=== PATIENT | female | born 1935 | race Caucasian/White ===

== ENCOUNTER → 2019-09-04 16:49 | Outpatient (CLI) | payer MEDICARE, SELFPAY ==
--- NOTE | ~2019-09-04 | XR_ITS ---
EXAMINATION: XR knee LT 2V EXAM DATE: 09/04/2019 17:08 INDICATION: Posterior left knee pain, no known recent injury. Unable to stand. TECHNIQUE: Three projections of the left knee. There is no prior study for comparison. FINDINGS: No evidence osteochondral defect or joint body in the left knee joint. Moderate sized trinh prapatellar enthesopathy. There is moderate medial and probably patellofemoral compartment primary os teoarthritis, mild at the lateral tibiofemoral compartment. No joint effusion. There are no acute fra ctures or dislocations identified. There is no subcutaneous gas. The soft tissue is unremarkable. There are no radiopaque foreign bodies. 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 Reviewed, dictated and finalized at location A. IMPRESSION: Moderate patellofemoral and medial tibiofemoral compartment osteoar thritis.
== END ==
PROVIDERS: PCP Family Medicine; Visit Provider Family Medicine
DX: M25.562 Pain in left knee (principal); M17.12 Unilateral primary osteoarthritis, left knee
CPT/HCPCS: 73560

== ENCOUNTER 2019-09-04 17:25 | Outpatient (CLI) | payer MEDICARE, SELFPAY ==
[2019-09-04 17:42] LABS: Hematocrit 34.4 % (37.0-47.0); Hemoglobin 10.2 g/dL (12.0-15.0); Mean Corpuscular HGB Conc 29.7 g/dl (32-36); Mean Corpuscular Hemoglobin 27.7 pg (26-34); Mean Corpuscular Volume 93.5 fl (80-100); Mean Platelet Volume 10.2 fl (7.4-10.4); Platelet Count Result 292 k/mm3 (150-375); Red Blood Count 3.68 M/mm3 (4.2-5.4); Red Cell Distribution Width 16.6 % (11.5-14.5); White Blood Count 12.3 K/mm3 (4.5-10.0)
[2019-09-04 17:53] LABS: Albumin Level 3.2 g/dL (3.5-5.1); Alkaline Phosphatase 224 U/L (38-126); Aspartate Amino Transferase 35 U/L (14-36); Bilirubin,Total 1.4 mg/dL (0.2-1.3); Blood Urea Nitrogen 46 mg/dL (7-17); Calcium 8.9 mg/dL (8.4-10.2); Carbon Dioxide 18 mmol/L (22-30); Chloride 103 mmol/L (98-107); Estimated Glomerular Filt Rate 18; Glucose 110 mg/dL (65-105); Potassium 4.8 mmol/L (3.4-5.0); Sodium 137 mmol/L (137-145)
[2019-09-04 17:57] LABS: Alanine Aminotransferase 25 U/L (4-35)
== END 2019-09-04 17:26 | disposition home or self-care (01) ==
PROVIDERS: PCP Family Medicine; Visit Provider Family Medicine
DX: R52 Pain, unspecified (principal); R53.83 Other fatigue
CPT/HCPCS: 36415; 80053; 85027

== ENCOUNTER 2019-09-10 08:47 | Outpatient (CLI) | payer MEDICARE, SELFPAY ==
[2019-09-10 10:27] LABS: Basophils Absolute Auto 0.1 K/mm3 (0.0-0.1); Basophils Percent Auto 0.4 % (0.2-1.2); Eosinophils Absolute Auto 0.6 K/mm3 (0-0.3); Eosinophils Percent Auto 5.2 % (0-4.4); Hematocrit 32.3 % (37.0-47.0); Hemoglobin 9.8 g/dL (12.0-15.0); Immature Granulocyte Absolute 0.05 K/mm3 (0.00-0.031); Immature Granulocyte Percent A 0.4 % (0-0.5); Lymphocytes Absolute Auto 1.91 K/mm3 (0.9-3.2); Lymphocytes Percent Auto 16.4 % (18.3-44.2); Mean Corpuscular HGB Conc 30.3 g/dl (32-36); Mean Corpuscular Hemoglobin 27.8 pg (26-34); Mean Corpuscular Volume 91.8 fl (80-100); Mean Platelet Volume 10.3 fl (7.4-10.4); Monocytes Absolute Auto 0.9 K/mm3 (0.1-0.6); Monocytes Percent Auto 7.4 % (2.6-8.5); Neutrophils Absolute Auto 8.2 K/mm3 (1.3-6.7); Neutrophils Percent Auto 70.2 % (45.5-73.1); Platelet Count Result 290 k/mm3 (150-375); Red Blood Count 3.52 M/mm3 (4.2-5.4); Red Cell Distribution Width 16.7 % (11.5-14.5); White Blood Count 11.6 K/mm3 (4.5-10.0)
[2019-09-10 10:41] LABS: Alanine Aminotransferase 17 U/L (4-35); Albumin Level 2.9 g/dL (3.5-5.1); Alkaline Phosphatase 310 U/L (38-126); Aspartate Amino Transferase 30 U/L (14-36); Blood Urea Nitrogen 56 mg/dL (7-17); Calcium 8.9 mg/dL (8.4-10.2); Carbon Dioxide 21 mmol/L (22-30); Chloride 103 mmol/L (98-107); Estimated Glomerular Filt Rate 19; Glucose 102 mg/dL (65-105); Potassium 4.5 mmol/L (3.4-5.0); Sodium 135 mmol/L (137-145)
== END 2019-09-10 08:48 | disposition home or self-care (01) ==
PROVIDERS: PCP Family Medicine; Visit Provider Family Medicine
DX: D72.829 Elevated white blood cell count, unspecified (principal); N18.3 Chronic kidney disease, stage 3 (moderate); R74.8 Abnormal levels of other serum enzymes; R79.89 Other specified abnormal findings of blood chemistry
CPT/HCPCS: 36415; 80053; 85025

== ENCOUNTER 2019-09-17 09:35 | Outpatient (CLI) | payer MEDICARE, SELFPAY ==
--- NOTE | ~2019-09-17 | US_ITS ---
US renal BI 09/17/2019 10:24 Procedure: Realtime transabdominal ultrasound of the kidneys and bladder. Indication: Chronic renal disease stage III Comparison: CT dated 01/07/2019 Findings: There is bilateral renal cortical thinning. The right kidney measures 6.7 cm and left kidne y measures 8.7 cm. Bladder is empty limiting evaluation for bladder abnormality. Impression: 1: Atrophic kidneys with cortical thinning, consistent with chronic medical renal disease. Reviewed, dictated and finalized at location A. Impression: 1: Atrophic kidneys with cortical thinning, consistent with chronic medical hair al disease.
== END 2019-09-17 09:36 | disposition home or self-care (01) ==
PROVIDERS: PCP Family Medicine; Visit Provider Family Medicine
DX: N18.3 Chronic kidney disease, stage 3 (moderate) (principal); N26.1 Atrophy of kidney (terminal)
CPT/HCPCS: 76775

== ENCOUNTER 2019-09-27 10:41 | Inpatient (IN) | payer MEDICARE, SELFPAY ==
[2019-09-27] VITALS (23 sets, daily range): BP systolic 65–112; BP diastolic 40–93; PULSE 62–74; RESP 14–27; TEMP 36.2–36.6; O2SAT 93–100; BMI 38.2
--- NOTE | 2019-09-27 | ECHO_ITS ---
Patient Info Name: Helga Richards Age: 84 years : 1935 Gender: Female Ht: 60 in Wt: 200 lbs BSA: 2.01 m2 HR: 83 bpm BP: 77 / 41 mmHg Technical Quality: Fair Exam Date: 09/27/2019 2:21 PM Exam Location: [facility] Patient Status: Emergency Admit Date: 09/27/2019 Staff Ordering Physician: Shannon Marquis MD Merchandise Distributor: Jasbir Degroot, SIRISHA, RT Attending Provider: Shannon Marquis MD Referring Physician: Benitez GOMEZ; Exam Type: CA echo dop color flow w con Study Info Indications I26.99 - Other pulmonary embolism without acute cor pulmonale Complete two-dimensional, color flow and Doppler transthoracic echocardiogram is performed with contrast to opacify the left ventrical and to improve the deliniation of the left ventrical endocarial boarders. Summary 1. Left ventricular chamber dimension is normal. 2. Definity contrast administered improved wall motion interpretation. 3. Left ventricular systolic function is normal, estimated at 60-65%. 4. The left ventricular diastolic function is grade I diastolic dysfunction. 5. E/e' 9 is minimally elevated. 6. The aortic valve is not well visualized. 7. There is mild aortic valve stenosis based on a peak velocity of 154.83 cm/s, mean gradient of 4 mmHg, and aortic valve area of 1.44 cm2. 8. There is small right sided pericardial effusion. Left Ventricle E/e' 9 is minimally elevated. Definity contrast administered improved wall motion interpretation. Left ventricular chamber dimension is normal. Left ventricular systolic function is normal, estimated at 60-65%. The left ventricular diastolic function is grade I diastolic dysfunction. Right Ventricle Right ventricular chamber dimension is normal. Right ventricular systolic function is normal. Left Atria Left atrial chamber dimension is normal. Right Atria Right atrial chamber dimension is not well visualized. Aortic Valve There is mild aortic valve stenosis based on a peak velocity of 154.83 cm/s, mean gradient of 4 mmHg, and aortic valve area of 1.44 cm2. Cannot determine number of aortic valve leaflets. The aortic valve is not well visualized. There is no aortic valve regurgitation. Pulmonic Valve The pulmonic valve is not well visualized. Mitral Valve There is no mitral valve stenosis. There is no mitral valve regurgitation. Tricuspid Valve The tricuspid valve leaflets are not well visualized. There is no tricuspid valve regurgitation. Pericardium/Pleural There is small right sided pericardial effusion. Inferior Vena Cava Normal inferior vena cava with >50% collapse upon inspiration consistent with normal right atrial pressure, 5 mmHg. Aorta The aortic root size at the sinus of Valsalva is normal. Left Ventricular Outflow Tract Name Value Normal LVOT 2D LVOT Diameter 1.86 cm LVOT Doppler LVOT Peak Velocity 75.36 cm/s LVOT Peak Gradient 2 mmHg LVOT Mean Gradient 1 mmHg LVOT VTI 13.19 cm LVOT VTI/AV VTI Ratio 0.53
--- NOTE | ~2019-09-27 | XR_ITS ---
XR chest 1V portable DATE: 09/29/2019 06:14 INDICATION: Hypoxia. Dyspnea. TECHNIQUE: Portable AP chest on 09/29/2019 at 0514 hours COMPARISON: 09/28/2019 portable AP chest FINDINGS: Increased retrocardiac density on the left consistent with left lower lobe atelectasis and/ or consolidation. Small left pleural effusion is suggested. No right pleural effusion. Heart size is appears within normal range. There is aortic calcification. Diffuse osteopenia. Degenerative spurring and dextroscoliosis of the thoracolumbar spine. Surgical clips overlie the right axillary area, consistent with axillary node dissection. IMPRESSION: Left lower lobe atelectasis and/or consolidation, stable or mildly improved since 09/27 Reviewed, dictated and finalized at location A.
--- NOTE | ~2019-09-27 | CT_ITS ---
EXAMINATION: CT abdomen pelvis wo con DATE: 09/28/2019 08:48 INDICATION: Sepsis, renal failure, upper abdominal pain, urinary frequency and dysuria. TECHNIQUE: Computed tomography (CT) of the abdomen and pelvis was performed without intravenous contr ast. Automated exposure control and iterative reconstruction technique were employed. The dose-length product was 1105.26 mGy-cm. COMPARISON: CT dated 01/07/2019 FINDINGS: There are a few new noncalcified pulmonary nodules in the bilateral lower lungs on the largest appear ing 8 mm in the right lower lobe and 7 mm in the left lower lobe concerning for metastatic disease. S mall left and trace right pleural effusions. There is suggestion of nodular soft tissue density depos its at the posterior sulcus of the left pleural space in addition to macroscopic fat attenuation lobu lar extension of subpleural fat, the former also concerning for metastatic disease. Heart size is nor mal. Atherosclerotic coronary artery calcification. There is some fat attenuation along the ventricul ar septum and along the papillary muscles and moderate or band in the right ventricle consistent with chronic infarct. No pericardial or pleural effusion. Scattered hepatic and splenic calcifications consistent with old granulomatous disease. 1.5 cm fluid attenuation hepatic cyst. There are scattered more subtle hypodense hepatic nodules measuring up to 1 .5 cm scattered throughout the liver also suspicious for metastatic disease. Branching hypodense stru cture in the lateral segment of the left hepatic lobe suspicious for dilated bile ducts without evide nt obstructing stone. There are a couple calcified gallstones at the neck of the gallbladder which is distended to 4.5 cm. There appears to be either mild edematous gallbladder wall thickening versus tr theresa amount of pericholecystic fluid at the fossa between the gallbladder and liver which raises some concern for acute cholecystitis.. Pancreas and bilateral adrenal glands are normal. Mild bilateral re nal cortical atrophy. Multiple small pelvic cysts at the left kidney. No urolithiasis or hydronephros is. Postoperative change of prior partial colectomy with residual Bass's pouch in the pelvis. There is a left lower quadrant and colostomy and parastomal hernia containing multiple loops of nonobstructed bowel. There is mesenteric edema along with numerous soft tissue density nodules scattered throughou t the abdomen and pelvis including within the parastomal hernia likely representing a combination of metastatic lymphadenopathy as well as peritoneal implants. There is additional likely metastatic retr operitoneal lymphadenopathy. There is a [place] catheter in the bladder with asymmetric nodular wall th ickening along the left anterior side of the bladder wall which could be related to primary urothelia l carcinoma or more likely a conglomeration of peritoneal implants along the periphery of the bladder wall. Severe lumbar spondylosis. Chronic bilateral sacroiliitis. No new suspicious lytic or blastic bone lesions. There is a conglomeration of lymph nodes tracking along the left common femoral vein with effacement of the intervening fat plane. Prominent asymmetric edema at the left lower limb likely sequela of the previously noted extensive deep venous thrombosis throughout the left lower limb. Findings however r aise concern for invasion of left common femoral vein. IMPRESSION: 1. Extensive metastatic disease which appears to involve the lungs, left pleural space with small lef t pleural effusion, liver, peritoneum and numerous lymph nodes throughout the abdomen, pelvis and lef t inguinal region. 2. Localized biliary ductal dilation in the lateral segment of the left hepatic lobe which may be seq uela of obstruction related to metastatic disease. 3. Findings consistent with previously noted extensive deep venous thrombosis throughout the le
--- NOTE | ~2019-09-27 | US_ITS ---
US right upper quadrant DATE: 09/27/2019 15:56 INDICATION: Generalized abdominal pain. Gallstones. TECHNIQUE: Real-time imaging of liver, pancreas, gallbladder areas COMPARISON: 01/07/2019 CT abdomen pelvis FINDINGS: At least 2 filling defects are noted at the gallbladder neck, with associated acoustical sh adowing, the larger measuring approximately 8.7 mm dimension. There is mild gallbladder wall thickeni ng, measuring up to 3.5 mm thickness. No pericholecystic fluid collection is evident.. No suspicious hepatic or pancreatic mass lesion is evident. There is normal hepatopedal portal venous flow direction. The common bile duct measures 5.6 mm, within normal limits. IMPRESSION: Cholelithiasis, mild gallbladder wall thickening. Differential diagnosis includes chronic cholecystitis as well as acute cholecystitis. Reviewed, dictated and finalized at [facility]. Reviewed, dictated and finalized at location [facility]. IMPRESSION: Cholelithiasis, mild gallbladder wall thickening. Differential diag nosis includes chronic cholecystitis as well as acute cholecystitis.
--- NOTE | ~2019-09-27 | US_ITS ---
US venous doppler [facility] DATE: 09/27/2019 11:17 INDICATION: Left lower extremity swelling TECHNIQUE: Real-time and color flow imaging and Doppler analysis of the veins of the left lower extre mity COMPARISON: None FINDINGS: There is thrombus and absence of compression of the left common femoral, femoral, popliteal and posterior tibial and peroneal veins as well as greater saphenous vein. No spontaneous or phasic flow or augmentation. IMPRESSION: Deep venous thrombosis throughout the left lower extremity Dr. Roldan telephoned the report on 09/27/2019 at 1122 hours to emergency room physician Dr. Marquis Reviewed, dictated and finalized at [facility]. Reviewed, dictated and finalized at [facility]. IMPRESSION: Deep venous thrombosis throughout the left lower extremity Dr. Roldan telephoned the report on 09/27/2019 at 1122 hours to emergency room phys ye Marquis
--- NOTE | ~2019-09-27 | NM_ITS ---
NM pulmonary perfusion DATE: 09/27/2019 13:36 INDICATION: Dyspnea. Deep venous thrombosis of lower extremity TECHNIQUE: 8 perfusion images after intravenous administration of 4.5 mCi [id number] MAA COMPARISON: 09/27/2019 2 view chest 09/27/2019 venous duplex examination of left lower extremity FINDINGS: The examination is limited due to patient movement and inability to move arms above head. There are multiple unmatched subsegmental perfusion defects, consistent with high probability of pulm onary embolism. IMPRESSION: High probability of pulmonary embolism Reviewed, dictated and finalized at [facility]. Reviewed, dictated and finalized at [facility].
--- NOTE | ~2019-09-27 | XR_ITS ---
EXAMINATION: XR chest 1V portable DATE: 09/28/2019 05:51 INDICATION: Hypoxia. TECHNIQUE: A single frontal view of the chest was obtained. COMPARISON: Chest 2 views 09/27/2019, CT abdomen and pelvis 01/07/2019 FINDINGS: A calcified right lung nodule and calcified right hilar lymph nodes are consistent with old granulomatous disease. There are airspace opacities in the perihilar regions and lower lung zones, l eft worse than right. There is a small left pleural effusion. No pneumothorax. The heart size is norm al. IMPRESSION: 1. Worsened airspace opacities in the perihilar regions and lower lung zones, consistent with pulmona ry edema versus pneumonia. 2. Small left pleural effusion. Reviewed, dictated and finalized at location [facility]. IMPRESSION: 1. Worsened airspace opacities in the perihilar regions and lower lung zones, c onsistent with pulmonary edema versus pneumonia. 2. Small left pleural effusion.
--- NOTE | ~2019-09-27 | XR_ITS ---
EXAMINATION: XR chest 1V portable DATE: 10/02/2019 06:35 INDICATION: Hypoxia. TECHNIQUE: A single frontal view of the chest was obtained. COMPARISON: Chest single view 09/30/2019, chest CT 09/28/2019 FINDINGS: A calcified right lung nodule and calcified right hilar lymph nodes are consistent with old granulomatous disease. There is a small left pleural effusion. There is a subcentimeter nodule in ri ght lower lobe. There are airspace opacities in left perihilar region and at left lung base. No pneum othorax. The heart size is normal. There are surgical clips in right axilla. IMPRESSION: 1. Worsened small left pleural effusion. 2. Worsened airspace opacities in left perihilar region and at left lung base, consistent with atelec tasis or less likely pneumonia. 3. Right lung lower lobe nodule, consistent with metastatic disease. Reviewed, dictated and finalized at location [facility]. IMPRESSION: 1. Worsened small left pleural effusion. 2. Worsened airspace opacities in left perihilar region and at left lung base, consistent with atelectasis or less likely pneumonia. 3. Right lung lower lobe nodule, consistent with metastatic disease.
--- NOTE | ~2019-09-27 | XR_ITS ---
XR chest 1V portable DATE: 09/30/2019 06:03 INDICATION: Hypoxia TECHNIQUE: Portable AP chest on 09/30/2019 at 0509 hours COMPARISON: 09/29/2019 portable AP chest at 0514 hours FINDINGS: There is persistent left lower lobe infiltrate and/or atelectasis. Minimal left pleural eff usion is suggested. Old pulmonary granulomatous disease including calcified granuloma in the right lung base. Aortic atherosclerosis. Surgical clips, right axillary area. Diffuse osteopenia. Dextro scoliosis and degenerative spurring of the thoracolumbar spine. IMPRESSION: No significant change of left lower lobe infiltrate and/atelectasis since 09/29/2019 Reviewed, dictated and finalized at location [facility].
--- NOTE | ~2019-09-27 | XR_ITS ---
XR chest 2V DATE: 09/27/2019 13:21 INDICATION: Dyspnea. The venous thrombosis of the left lower extremity TECHNIQUE: AP and lateral views COMPARISON: 04/09/2014 PA and lateral chest FINDINGS: There is old pulmonary granulomatous disease. Normal heart size. Aortic arch calcification. No pulmonary infiltrate or consolidation, pleural effusion or pulmonary vascular congestion or pneum othorax is evident. Surgical clips overlie right axillary area, likely due to axillary node dissection. Degenerative changes of the thoracic and lumbar spine. IMPRESSION: No active disease Reviewed, dictated and finalized at location [facility]. IMPRESSION: No active disease
--- NOTE | 2019-09-27 10:32 | ED.LOWEXIN ---
HPI - Extremity Injury (Lower) General Chief Complaint: Extremity Injury, Lower Stated Complaint: . Time Seen by Provider: 09/27/19 10:33 Source: patient, family and other (PCP) Mode of arrival: EMS Limitations: no limitations History of Present Illness HPI Narrative: Pt is an 84 y/o female who presents to the ED, via EMS, from home with c/o LLE pain from her lt hip down her whole lt leg. She states that this morning she noticed her lt leg was more swollen. She states that she had an XR of her LLE and had blood drawn at the hospital a couple of weeks ago. Spouse notes that the pt vomited brown emesis this morning and about a week ago vomited green then black emesis. She was Dx with gall-stones but they did not recommend surgery at that time and suggested she change her diet. Pt has not been ambulatory for a couple of months. She is supposed to see a Dope Sprayer on 10/10. Per spouse pt has urinary incontinence for a couple of months. Pt reports liquid stool coming out of her colostomy bag. She also reports an intermittent cough and SOB. Pt denies ABD pain, fever, or CP. Per spouse, pt has been weak and has not been eating much. Spouse states that yesterday she only ate oatmeal and tomato soup. Pt states that she only had one cup of water yesterday and none today. Pt's PCP, Dr. Henson called the ED to let us know that the pt was coming. She states that the pt has a H/O DVT and normally uses a wheelchair. She also noted that the pt's lt leg is more swollen than normal. complaint: other (lt leg pain) Relieving factors: nothing Context: other (h/o DVT) Associated symptoms: swelling Other symptoms: SOB and other (cough, decreased intake, weak) Related Data Home Medications Medication Instructions Recorded Confirmed aspirin 81 mg tablet,delayed 81 mg PO DAILY 05/30/19 release calcium carbonate 600 mg calcium 600 mg PO BID 05/30/19 (1,500 mg) tablet olmesartan 20 mg tablet 20 mg PO DAILY 05/30/19 silver nitrate applicators 75 %-25 1 applic TOPICAL 2XW 05/30/19 % topical stick exemestane 25 mg tablet 25 mg PO DAILY 09/04/19 09/04/19 escitalopram oxalate 10 mg tablet 20 mg PO DAILY tablet 09/27/19 Allergies Allergy/AdvReac Type Severity Reaction Status Date / Time adhesive Allergy Unknown RASH Verified 09/27/19 10:30 clindamycin Allergy Unknown Skin Verified 09/27/19 10:30 Reaction Penicillins Allergy Unknown Skin Verified 09/27/19 10:30 Reaction Quinolones Allergy Unknown Quinolones Verified 09/27/19 10:30 ([id number]) Review of Systems Review of Systems: All systems reviewed & are unremarkable except as noted in HPI and below Constitutional: Constitutional: Denies fever(s), Reports poor appetite and Reports weakness Cardiovascular: Cardiovascular: Denies chest pain Respiratory: Respiratory: Reports cough (intermittent) and Reports dyspnea (intermittent) Gastrointestinal: Gastrointestinal: Denies abdominal pain, Reports loose stools (liquid stool in colostomy bag) and Reports vomiting Genitourinary: Genitourinary: Reports urinary incontinence Musculoskeletal: Musculoskeletal: Reports other (LLE pain, LLE swelling) [facility], [facility] Past Medical History Medical History Chronic kidney disease, stage III (moderate) Colostomy in place Depression with anxiety DVT (deep venous thrombosis) Gallstones (2019) General deterioration of health History of breast cancer History of rectal cancer (~1999) Hypertensive chronic kidney disease with stage 1 through stage 4 chronic kidney disease, or unspecified chronic kidney disease Lumbar spondylosis Metabolic syndrome Mixed hyperlipidemia Popliteal cyst Prediabetes Varicose veins of both lower extremities Surgical History Surgical History History of breast biopsy (~1981) History of cataract extraction (~1981) History of colonoscopy (~09/16/10) History of colonoscopy (
--- NOTE | 2019-09-27 10:40 | PC.NURSE ---
Pt and further discuss that she has had intermentint abd pain and was told she has gall stones, denies pain currently. Pt has colostomy and it is stillmaking stool. Pt reports pt is not able to walk well now. Pt has had n/v yesterday.
[2019-09-27] MEDS: SODIUM CHLORIDE 0.9% IV 1,000 ML 999 ML IV CONT ×5 (10:54→18:29)
[2019-09-27] MEDS: ONDANSETRON INJ 4 MG/2 ML VIAL IV PUSH (11:20)
[2019-09-27 11:30] LABS: Basophils Absolute Auto 0.1 K/mm3 (0.0-0.1); Basophils Percent Auto 0.3 % (0.2-1.2); Eosinophils Absolute Auto 0.3 K/mm3 (0-0.3); Eosinophils Percent Auto 1.8 % (0-4.4); Hematocrit 33.7 % (37.0-47.0); Hemoglobin 9.9 g/dL (12.0-15.0); Immature Granulocyte Absolute 0.08 K/mm3 (0.00-0.031); Immature Granulocyte Percent A 0.5 % (0-0.5); Lymphocytes Absolute Auto 1.67 K/mm3 (0.9-3.2); Lymphocytes Percent Auto 10.8 % (18.3-44.2); Mean Corpuscular HGB Conc 29.4 g/dl (32-36); Mean Corpuscular Volume 95.2 fl (80-100); Mean Platelet Volume 10.4 fl (7.4-10.4); Monocytes Absolute Auto 0.8 K/mm3 (0.1-0.6); Monocytes Percent Auto 4.8 % (2.6-8.5); Neutrophils Absolute Auto 12.7 K/mm3 (1.3-6.7); Neutrophils Percent Auto 81.8 % (45.5-73.1); Platelet Count Result 229 k/mm3 (150-375); Red Blood Count 3.54 M/mm3 (4.2-5.4); Red Cell Distribution Width 17.3 % (11.5-14.5); White Blood Count 15.5 K/mm3 (4.5-10.0)
--- NOTE | 2019-09-27 11:31 | ECG_ITS ---
Measurements Intervals Hooper Rate: 55 P: RI: 0 QRS: -3 QRSD: 84 T: 6 QT: 413 QTc: 398 Interpretive Statements SINUS OR ECTOPIC ATRIAL RHYTHM WITH SINUS ARRHYTHMIA LOW QRS VOLTAGE IN LIMB LEADS BORDERLINE T WAVE ABNORMALITY- INFERIOR LEADS BASELINE ARTIFACT- I, II, AVR, AVF, V1, V3-V4 BORDERLINE ECG Electronically Signed On 09-27-2019 12:17:59 CDT by Andriy Shaw D.O.
[2019-09-27 11:40] LABS: Anisocytosis 1+ (NORMAL); Hypochromasia 1+ (NORMAL); INR 1.4; Platelet Estimate Adequate (Adequate)
[2019-09-27 11:41] LABS: Partial Thromboplastin Time 29.8 SECONDS (22.3-36.8)
[2019-09-27 11:46] LABS: Alanine Aminotransferase 8 U/L (4-35); Albumin Level 2.6 g/dL (3.5-5.1); Alkaline Phosphatase 301 U/L (38-126); Aspartate Amino Transferase 25 U/L (14-36); Bilirubin,Total 0.7 mg/dL (0.2-1.3); Blood Urea Nitrogen 113 mg/dL (7-17); Calcium 9.3 mg/dL (8.4-10.2); Carbon Dioxide 21 mmol/L (22-30); Chloride 107 mmol/L (98-107); Estimated CRCL calculation 8 ml/min; Estimated Glomerular Filt Rate 9; Glucose 110 mg/dL (65-105); Lipase 95 U/L (23-300); Magnesium 2.3 mg/dL (1.6-2.3); Phosphorus 4.7 mg/dL (2.5-4.5); Potassium 6.5 mmol/L (3.4-5.0); Sodium 137 mmol/L (137-145)
[2019-09-27] MEDS: DEXTROSE 50% 25 GM/50 ML SYRINGE IV PUSH ×2 (11:53→14:05)
[2019-09-27] MEDS: INSULIN HUMAN REGULAR (*BKC) 100 UNITS/ML 10 UNITS IV PUSH (11:54)
[2019-09-27] MEDS: CALCIUM GLUCONATE 1,000 MG/10 ML VIAL 2000 MG IV PUSH (11:54)
[2019-09-27] MEDS: SODIUM BICARBONATE 8.4% 50 MEQ/50 ML VIAL IV PUSH (11:54)
[2019-09-27 12:05] LABS: NT Pro B Type Natriuretic Pept 4050 PG/ML (5-100)
[2019-09-27 12:06] LABS: Troponin I 0.022 ng/mL (0.000-0.034)
[2019-09-27 12:11] LABS: Glucose Point of Care 93 (65-105)
[2019-09-27 12:13] LABS: Alveolar/Arterial O2 Gradient 70.2 mmHg; Base Excess ABG -2.5 mEq/l (+/-2.0); Carboxyhemoglobin 0.5 % THb (0-2.0); Fractional Inspired Oxygen 28 %; HCO3 ABG 19.9 mEq/l (22.0-26.0); Oxygen Content ABG 12.1 %vol (16.0-22.0); Oxygen Saturation ABG 98.1 % (95.0-100.0); Oxyhemoglobin 96.6 % THb (90.0-100.0); PCO2 ABG 25.9 mmHg (35.0-45.0); PO2 ABG 98.9 mmHg (80.0-100.0); PO2 FiO2 Ratio Arterial Blood 3.53 %; Reduced Hemoglobin 2.9 %THb (0-5.0); Total Hemoglobin 8.8 g/dL (12.0-18.0); pH ABG 7.503 (7.350-7.450)
[2019-09-27 12:14] LABS: Device NASAL CANNULA; Modified Allen's Test Pass; Site Drawn LEFT RADIAL
[2019-09-27 12:56] LABS: Glucose Point of Care 96 (65-105)
--- NOTE | 2019-09-27 12:58 | PC.NURSE ---
Straight cath x2 with no success
[2019-09-27 14:01] LABS: Glucose Point of Care 62 (65-105)
[2019-09-27] MEDS: HEPARIN SODIUM 5,000 UNITS/ML VIAL 5000 UNITS IV PUSH (14:27)
[2019-09-27 14:28] LABS: Reflex Lactic Acid Yes or No Add Lactic
[2019-09-27] MEDS: HEPARIN SOD/D5W 100 UNITS/ML 25,000 UNITS/250 ML BAG 11 UNITS IV CONT (14:28)
--- NOTE | 2019-09-27 14:47 | PC.NURSE ---
Per personal trainer Verbal order, titrated william to 100mcg/min.
[2019-09-27 14:49] LABS: Lactic Acid 4.9 mmol/L (0.7-2.1)
[2019-09-27 14:59] LABS: Add Urine Microscopic? YES; Appearance Urine Turbid (Clear); Bacteria Urine 2+ /hpf; Bilirubin Urine Negative (Negative); Blood Urine 2+ (Negative); Color Urine Yellow (Yellow); Glucose Urine UA Negative (Negative); Ketones Urine Negative (Negative); Leukocyte Esterase Ur 2+ LEU/UL (Negative); Mucus Urine Rare /lpf; Nitrate Urine Negative (Negative); Protein Urine 3+ mg/dL (Negative); RBC Urine >75 /hpf (0-2); Specific Grav Ur 1.023 (1.001-1.035); Urobilinogen Urine Negative mg/dL (<2.0); WBC Urine >75 /hpf
--- NOTE | 2019-09-27 15:02 | WPDCNINT ---
Assessment and Plan Assessment and plan (1) Shock: Code(s): R57.9 - Shock, unspecified Status: Acute Assessment and Plan: patient is hypotensive and blood pressure has not improved after 4 L of IV fluid. Her pictures mixed as to whether patient has septic shock versus cardiogenic from pulmonary embolism or both patient has been started on Asif-Synephrine. stat echo is being done and I have spoken to Dr. Shaw regarding prelim report of echo and he told me that he does not see any evidence of RV strain dilation or failure. In light of minimal hypoxia and echo findings it does not appear that hypotension is secondary to a massive PE and is more likely secondary to sepsis. Patient was explained the risks and benefits of tPA and its utility patient understands the risk and is agreeable to administration if needed. Central line was Initially not placed by ED because of potential tPA administration and Asif-Synephrine was started via wide bore peripheral IV at this time. But will place a femoral CVC now as pt on heparin infusion and switch to levophed Monitor LA Check Cheetah once pt reaches ICU (2) Pulmonary embolism: Code(s): I26.99 - Other pulmonary embolism without acute cor pulmonale Status: Acute Assessment and Plan: patient has acute DVT and V/Q scan suggestive of PE. Patient has been started on heparin infusion. See above (3) Sepsis: Code(s): A41.9 - Sepsis, unspecified organism Status: Acute Assessment and Plan: Empiric broad spectrum antibiotics for now Empiric Rocephin and flagyl to cover for UTI and potential cholecystitis Cultures sent and pending. the UA ordered and pending check right upper quadrant ultrasound vasopressors to maintain blood pressure (4) SIMI (acute kidney injury): Code(s): N17.9 - Acute kidney failure, unspecified Status: Acute Assessment and Plan: prerenal versus ATN IV fluids monitor urine output electrolytes and creatinine will consider Nephrology consultation if do not improve or worsens further CT A/P to be done (5) CKD (chronic kidney disease): Code(s): N18.9 - Chronic kidney disease, unspecified Status: Acute (6) Hyperkalemia: Code(s): E87.5 - Hyperkalemia Status: Acute Assessment and Plan: was treated with insulin calcium dextrose and bicarb in the ED will give also dose of Kayexalate recheck (7) Colostomy status: Code(s): Z93.3 - Colostomy status Status: Chronic Assessment and Plan: colostomy care (8) DVT of leg (deep venous thrombosis): Code(s): I82.409 - Acute embolism and thrombosis of unspecified deep veins of unspecified lower extremity Status: Acute Assessment and Plan: heparin infusion at this time echo is being done and pending (9) Gallstone: Code(s): K80.20 - Calculus of gallbladder without cholecystitis without obstruction Status: Acute Assessment and Plan: RUQ US already done in ED LFTs normal Additional Plan DVT prophylaxis - patient is on heparin drip Stress ulcer prophylaxis - not indicated Nutrition - NPO Code Status - I have discussed with both patient and patient wishes to be DNR and DNI at this time. Total Critical Care Time - 60 minutes Due to a high probability of clinically significant, life threatening deterioration, the patient required my highest level of preparedness to intervene emergently and I personally spent this critical care time directly and personally managing the patient. This critical care time included obtaining a history; examining the patient; pulse oximetry; ordering and review of studies; arranging urgent treatment with development of a management plan; evaluation of patient's response to treatment; frequent reassessment; and discussions with other providers. It was exclusive of separately billable procedures and treating other patients a
[2019-09-27 15:54] LABS: Glucose Point of Care 150 (65-105)
--- NOTE | 2019-09-27 16:00 | WPDPROCEDUR ---
Procedures Central Line Placement: Right Femoral: Discussed w/ patient and/or surrogate, the non-emergent placement of a central venous catheter, including its clinical necessity/indication & associated potential risks & complications.: Yes The patient and/or surrogate understand(s) and acknowledge(s) the need to proceed with central venous catheter insertion as an important element of the patient's clinical management.: Yes Consent: Obtained from pt and her Central Line Date: 09/27/19 Central Line Time: 16:00 Pre-procedural Time-Out was completed immediately before starting the procedure and confirmed: Patient Identification, Site, Procedure, Patient Position and the Availability of Requisite Equipment.: Yes Patient Position: supine Patient placed on monitor/pulse ox: Yes Provider Prep: mask, sterile gown, sterile gloves, Max. sterile barrier precautions, cap and hand hygiene Central line prep: Chlorhexidine scrub and sterile full body sheet applied Local anesthesia used: lidocaine 1% Amount of anesthesia used (ml): 5 Ultrasound used for placement: Yes Central line lumen inserted: triple Vietnamese: 12 Length (cm): 16 Depth of Insertion (cm): 16 Post procedure: sutured in place, good blood return, all ports aspirated, flushed, capped, tegaderm, hemostatic disc and aseptic technique maintained throughout procedure Patient tolerated procedure: well Complications: none
[2019-09-27] MEDS: SODIUM CHLORIDE 0.9% IV 1,000 ML 100 ML IV CONT (16:23)
[2019-09-27] MEDS: NOREPINEPHRINE 8 MG/D5W 250 ML 8 MG/250 ML BAG 9.4 MG IV CONT (16:24)
[2019-09-27] MEDS: metroNIDAZOLE 500 MG/ISO 100ML 500 MG/100 ML BAG 100 MG IVPB ×2 (16:25→22:24)
--- NOTE | 2019-09-27 16:45 | PM.IMHP ---
H&P: HPI History of Present Illness Chief complaint: Left leg pain and swelling. Narrative: Helga Richards is an 84-year-old female with chronic kidney disease, hypertension, and history of both breast and colon cancer who presented to the emergency department earlier this morning via EMS from home for evaluation of left leg pain and swelling. She has been essentially bed-bound for the last several months, for reasons unclear to me. She rarely gets up to a wheelchair if she is going out of the home for an appointment, She does not get up to a commode but has an colostomy in place, and uses depends otherwise. In any regard, she is not the greatest historian and cannot tell me when she 1st noticed the swelling or the pain. This morning, her left leg ?really hurt from my toes to my butt which prompted her to call 911. She was found to have a DVT throughout the left lower extremity, and a subsequent V/Q scan, performed due to hypotension, demonstrated a high probability for pulmonary embolism. A stat echocardiogram done in the emergency department showed no signs of right ventricular strain. She was also found to have worsening creatinine from baseline, and upon further questioning she admits that her appetite has not been well for quite some time. She has nausea most days, and intermittently will have episodes of emesis as well. She attributes this to her gallstones, and despite being on a low-fat diet, she continues to have upper abdominal discomfort after eating. Additionally, she complains of dysuria and urinary frequency. No fever, chills, or sweats. No emesis today. She denies hematemesis. She does note that her stools have been a bit more liquid than usual, but she attributes that to decreased oral intake. She has not noticed blood or mucus in the stool. She denies chest pain, pleuritic pain, palpitations, shortness of breath, orthopnea, and PND. Review of Systems Review of Systems: Narrative: Twelve systems were reviewed with pertinent positives and negatives as per HPI. No fever, chills, or sweats. She denies sinus congestion, rhinorrhea, otalgia, and odynophagia. Interestingly she does not have chest pain, pleuritic pain, or shortness of breath. No cough. No acute changes in her intermittent abdominal pain, mainly related to food. Except as documented, all other systems were reviewed and are negative. [facility] Past Medical History Medical History (Updated 09/27/19 @ 20:43 by Kezia Scott PA-C) Chronic kidney disease, stage III (moderate) Baseline creatinine is around 1.80. Colostomy in place Depression with anxiety Gallstones (2018) History of breast cancer Status post right lumpectomy on antiestrogen. History of colon cancer -Status post partial colon resection, chemotherapy, and radiation therapy in 2001. -colonoscopy 04/23/[address] Melgar was unremarkable. Hypertension Lumbar spondylosis Mixed hyperlipidemia Popliteal cyst Prediabetes Varicose veins of both lower extremities Surgical History Surgical History (Updated 09/27/19 @ 20:39 by Kezia Scott PA-C) History of cataract extraction (~1981) History of colon resection For colon cancer in 2001. History of colonoscopy (~09/16/10) History of colonoscopy (~08/17/07) History of lumpectomy of right breast Status post ORIF of fracture of ankle (~1984) Family History Family History Father Diabetes mellitus Family history of cardiovascular disease Mother Family history of cardiovascular disease Family history of malignant neoplasm of breast Sibling Family history of cardiovascular disease Acute myocardial infarction, Onset Age: 47 Family history of malignant neoplasm of breast in first degree relative Family history of malignant neoplasm of breast Other Carcinoma of colon Family history of elevated blood lipids Hypertension Social History Social History (Updated 09/27/19
[2019-09-27] MEDS: ACETAMINOPHEN 325 MG TABLET 650 MG PO (18:15)
[2019-09-27] MEDS: SODIUM POLYSTYRENE SULFONONATE 15 GM/60 ML BTL 30 GM PO (18:21)
[2019-09-27] MEDS: VASOPRESSIN INJ 100 UNITS in DEXTROSE 5% 95 ML IV CONT (18:30)
[2019-09-27 18:55] LABS: Basophils Percent Auto 0.2 % (0.2-1.2); Eosinophils Absolute Auto 0.1 K/mm3 (0-0.3); Eosinophils Percent Auto 0.7 % (0-4.4); Hematocrit 30.7 % (37.0-47.0); Hemoglobin 9.1 g/dL (12.0-15.0); Immature Granulocyte Absolute 0.16 K/mm3 (0.00-0.031); Immature Granulocyte Percent A 0.8 % (0-0.5); Lymphocytes Absolute Auto 2.07 K/mm3 (0.9-3.2); Lymphocytes Percent Auto 10.8 % (18.3-44.2); Mean Corpuscular HGB Conc 29.6 g/dl (32-36); Mean Corpuscular Hemoglobin 27.9 pg (26-34); Mean Corpuscular Volume 94.2 fl (80-100); Mean Platelet Volume 10.5 fl (7.4-10.4); Monocytes Percent Auto 5.3 % (2.6-8.5); Neutrophils Absolute Auto 15.7 K/mm3 (1.3-6.7); Neutrophils Percent Auto 82.2 % (45.5-73.1); Nucleated Red Blood Cells Perc 0.1 % (0.0-0.2); Platelet Count Result 233 k/mm3 (150-375); Red Blood Count 3.26 M/mm3 (4.2-5.4); Red Cell Distribution Width 17.5 % (11.5-14.5); White Blood Count 19.1 K/mm3 (4.5-10.0)
[2019-09-27 19:04] LABS: Lactic Acid 3.7 mmol/L (0.7-2.1)
[2019-09-27 19:11] LABS: Blood Urea Nitrogen 95 mg/dL (7-17); Calcium 8.4 mg/dL (8.4-10.2); Carbon Dioxide 18 mmol/L (22-30); Chloride 112 mmol/L (98-107); Estimated CRCL calculation 10 ml/min; Estimated Glomerular Filt Rate 11; Glucose 136 mg/dL (65-105); Hypochromasia 1+ (NORMAL); Platelet Estimate Adequate (Adequate); Potassium 4.8 mmol/L (3.4-5.0); Sodium 137 mmol/L (137-145)
--- NOTE | 2019-09-27 19:17 | ADMGEN ---
This patient, Helga Richards, was admitted to Intensive Care Unit-8. Patient/family oriented to hospital policies and general routines including ID bracelet, bed and alarms, visiting hours, pain management, procedures, bathroom and other care routines, personal items, smoking policy, room service/diet, and visiting hours. Valuables list has been completed. Information on how to activate the Rapid Response Team has been discussed. Patient/Family are encouraged to report perceived risks to care and to ask questions if they do not understand what they are told or what they should do.
[2019-09-27 21:08] LABS: Partial Thromboplastin Time > 200.0 SECONDS (22.3-36.8)
[2019-09-28] VITALS (15 sets, daily range): BP systolic 70–129; BP diastolic 38–61; PULSE 56–85; RESP 16–22; TEMP 36.6–36.8; O2SAT 91–100; BMI 40.7
[2019-09-28] MEDS: ACETAMINOPHEN 325 MG TABLET 650 MG PO ×2 (01:58→17:30)
[2019-09-28] MEDS: NOREPINEPHRINE 8 MG/D5W 250 ML 8 MG/250 ML BAG 31.9 MG IV CONT (03:06)
[2019-09-28 06:05] LABS: Basophils Percent Auto 0.2 % (0.2-1.2); Eosinophils Absolute Auto 0.1 K/mm3 (0-0.3); Eosinophils Percent Auto 0.3 % (0-4.4); Hematocrit 31.5 % (37.0-47.0); Hemoglobin 9.2 g/dL (12.0-15.0); Immature Granulocyte Absolute 0.26 K/mm3 (0.00-0.031); Immature Granulocyte Percent A 1.2 % (0-0.5); Lymphocytes Absolute Auto 2.17 K/mm3 (0.9-3.2); Lymphocytes Percent Auto 10.2 % (18.3-44.2); Mean Corpuscular HGB Conc 29.2 g/dl (32-36); Mean Corpuscular Hemoglobin 27.5 pg (26-34); Mean Platelet Volume 10.5 fl (7.4-10.4); Monocytes Absolute Auto 1.1 K/mm3 (0.1-0.6); Monocytes Percent Auto 5.4 % (2.6-8.5); Neutrophils Absolute Auto 17.6 K/mm3 (1.3-6.7); Neutrophils Percent Auto 82.7 % (45.5-73.1); Nucleated Red Blood Cells Perc 0.1 % (0.0-0.2); Platelet Count Result 277 k/mm3 (150-375); Red Blood Count 3.35 M/mm3 (4.2-5.4); Red Cell Distribution Width 17.8 % (11.5-14.5); White Blood Count 21.3 K/mm3 (4.5-10.0)
[2019-09-28 06:09] LABS: Alanine Aminotransferase 9 U/L (4-35); Albumin Level 2.3 g/dL (3.5-5.1); Alkaline Phosphatase 242 U/L (38-126); Aspartate Amino Transferase 32 U/L (14-36); Bilirubin,Total 0.4 mg/dL (0.2-1.3); Blood Urea Nitrogen 90 mg/dL (7-17); Calcium 8.4 mg/dL (8.4-10.2); Carbon Dioxide 20 mmol/L (22-30); Chloride 111 mmol/L (98-107); Estimated CRCL calculation 10 ml/min; Estimated Glomerular Filt Rate 11; Glucose 153 mg/dL (65-105); Lactic Acid 2.3 mmol/L (0.7-2.1); Magnesium 1.9 mg/dL (1.6-2.3); Sodium 137 mmol/L (137-145)
[2019-09-28 06:19] LABS: Partial Thromboplastin Time 154.5 SECONDS (22.3-36.8)
[2019-09-28 06:44] LABS: Anisocytosis 1+ (NORMAL); Hypochromasia 1+ (NORMAL); Platelet Estimate Adequate (Adequate)
[2019-09-28] MEDS: metroNIDAZOLE 500 MG/ISO 100ML 500 MG/100 ML BAG 100 MG IVPB ×3 (06:47→17:06)
--- NOTE | 2019-09-28 08:47 | WPDINTPN ---
Progress Note: A&P Assessment and Plan (1) Shock: Code(s): R57.9 - Shock, unspecified Status: Acute Assessment and Plan: Shock, likely related to infection, PE. Patient was adequately fluid resuscitated, noninvasive and monitoring fluid responsive. Will give additional IV fluids - echocardiogram did not show right heart strain. - UA shows UTI, possible acute cholecystitis, - continue metronidazole and ceftriaxone - femoral CVC line in place. - Continue Levophed and vasopressin - lactic acid down to 2.3 from 4.9 on admission - will start stress dose steroids (2) Pulmonary embolism: Code(s): I26.99 - Other pulmonary embolism without acute cor pulmonale Status: Acute Assessment and Plan: patient has acute DVT and V/Q scan suggestive of PE. Patient has been started on heparin infusion. - echocardiogram on 09/27/2019: Normal LV dimension, normal LV systolic function with EF 60-65%. Grade 1 diastolic dysfunction. RV chamber dimension and systolic function normal (3) SIMI (acute kidney injury): Code(s): N17.9 - Acute kidney failure, unspecified Status: Acute Assessment and Plan: acute kidney injury most likely related to septic shock, hypotension, pre renal, hypovolemia, ATN - adequately IV fluid resuscitated, - [place] showed patient is fluid responsive, discussed with Nephrology, agrees with IV fluids - continue maintenance IV fluids - maintain mean arterial pressures greater than 65 mmHg for adequate renal perfusion - appreciate Nephrology valuation recommendation - continue monitor renal function, electrolytes and urine output (4) CKD (chronic kidney disease): Code(s): N18.9 - Chronic kidney disease, unspecified Status: Acute Assessment and Plan: patient's baseline creatinine is 1.8, this could be related to Hypertension. 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 Extensive metastatic disease which appears to involve the lungs, left pleural space with small left pleural effusion, liver, peritoneum and numerous lymph nodes throughout the abdomen, pelvis and left inguinal region. 2. Localized biliary ductal dilation in the lateral segment of the left hepatic lobe which may be sequela of obstruction related to metastatic disease. 3. Findings consistent with previously noted extensive deep venous thrombosis throughout the left lower limb with possible invasion of the left common femoral vein by multiple large likely metastatic left inguinal lymph nodes. 4. Cholelithiasis with dilated gallbladder suggesting mild wall thickening versus trace amount of pericholecystic fluid which could be seen with acute cholecystitis. Per prior ultrasound report sonographic Degroot sign was negative but would consider HIDA scan for further evaluation (9) DVT prophylaxis: Code(s): Z29.9 - Encounter for prophylactic measures, unspecified Status: Acute Assessment and Plan: DVT prophylaxis - patient is on heparin drip Stress ulcer prophylaxis - not indicated Nutrition - NPO Additional Plan Hospitalist spoke to the pt and updated her with the CT abdomen /pelvis results.
[2019-09-28] MEDS: ESCITALOPRAM OXALATE 10 MG TABLET 20 MG PO (08:50)
--- NOTE | 2019-09-28 09:11 | PC.NURSE ---
Called placed to [place] patient's spouse to have nonformulary medication Exemestane brought from home. [place] will bring up to hospital at sometime today.
[2019-09-28] MEDS: NOREPINEPHRINE 8 MG/D5W 250 ML 8 MG/250 ML BAG 50.6 MG IV CONT ×2 (09:21→14:34)
[2019-09-28] MEDS: SODIUM CHLORIDE 0.9% IV 1,000 ML 100 ML IV CONT ×2 (10:43→20:30)
[2019-09-28] MEDS: hetaSTARCH 6%/NACL 500 ML 250 ML IV CONT ×2 (10:43→14:16)
--- NOTE | 2019-09-28 10:58 | PHAR ---
Home med verified: Exemestane 25mg Take 1 tablet PO daily after a meal
--- NOTE | 2019-09-28 11:10 | PM.CNNEP ---
Assessment and Plan Assessment and plan (1) Acute on chronic kidney failure: Qualifiers: Acute renal failure type: unspecified Chronic kidney disease stage: unspecified stage Qualified Code(s): N17.9 - Acute kidney failure, unspecified; N18.9 - Chronic kidney disease, unspecified Code(s): N17.9 - Acute kidney failure, unspecified; N18.9 - Chronic kidney disease, unspecified Status: Acute Assessment and Plan: The patient has chronic kidney disease. Her baseline creatinine is around 1.8. Most likely this is from hypertension. Patient also has acute kidney injury. This is most likely due to dehydration, hypotension and sepsis. The patient is getting IV fluids and antibiotics as well as supportive care and hopefully will turn around soon. Dialysis is always a possibility but we will follow this along, and do what ever needs to be done in accordance with the patient's wish fullness for aggressiveness of care. Discussed at length with Dr. Duarte (2) Septic shock: Code(s): A41.9 - Sepsis, unspecified organism; R65.21 - Severe sepsis with septic shock Status: Acute Assessment and Plan: The patient has low blood pressure and lactic acidosis. Her anion gap is currently about 16. And the lactic acid is 2.3. Some of her anion gap is likely due to the renal failure. Her blood gases actually show a respiratory alkalosis and metabolic acidosis. The former is likely due to the sepsis. (3) Pulmonary embolism: Qualifiers: Acute cor pulmonale presence: without acute cor pulmonale Chronicity: acute Pulmonary embolism type: unspecified Qualified Code(s): I26.99 - Other pulmonary embolism without acute cor pulmonale Code(s): I26.99 - Other pulmonary embolism without acute cor pulmonale Status: Acute Assessment and Plan: The patient is on heparin drip. (4) UTI (urinary tract infection): Qualifiers: Hematuria presence: without hematuria Urinary tract infection type: site unspecified Qualified Code(s): N39.0 - Urinary tract infection, site not specified Code(s): N39.0 - Urinary tract infection, site not specified Status: Acute Assessment and Plan: The patient has pyuria and hematuria. Cultures are pending. She is on antibiotics. History of Present Illness Reason for Consult Consult date: 09/28/19 Chief Complaint Chief complaint: Left leg pain and swelling. History of Present Illness Narrative: Halie is a very pleasant 84-year-old lady who has multiple medical problems including chronic kidney disease, hypertension, breast and colon cancers, colostomy, depression, hyperlipidemia, pre diabetes. The patient has been gradually weaker over the last few months. She remembers walking in December but by the time March came round she was unable to walk. She would mostly stay in bed and get around with a wheelchair. She really has not looked into why she has declined so much. Over the past few days she has noticed her left leg swelling more. She always has some swelling in both legs but usually is symmetric. This swelling got so bad that she decided to call 911 who took her to the emergency room. In the ER she was found to have a DVT. Her creatinine was elevated so a CT angio was not done but a perfusion scan was done which showed high probability for a pulmonary embolism. She has been placed on heparin. In the meantime she had a CT of the abdomen without contrast which showed widely metastatic disease along with the DVT in the left lower extremity. The patient was has also been hypotensive. She received 4L of fluid in the emergency room. This morning she had a [place] test which showed fluid responsiveness and so she is getting some more IV fluids now. Her recent blood pressures have been better. Currently her systolic is 109 on the monitor. Her urine output has been low. Upon admission her creatinine was elevated at 4.8. Her b
[2019-09-28] MEDS: SODIUM CHLORIDE 5% OPHTH OINT 3.5 GM TUBE 1 APPLIC EACH EYE (12:09)
[2019-09-28] MEDS: HYDROCORTISONE SODIUM SUCCINATE 100 MG/2 ML VIAL IV PUSH ×2 (14:16→20:30)
[2019-09-28 14:55] LABS: Partial Thromboplastin Time 101.6 SECONDS (22.3-36.8)
--- NOTE | 2019-09-28 16:16 | PM.IMPN ---
Progress Note: A&P Assessment and Plan (1) Septic shock: Code(s): A41.9 - Sepsis, unspecified organism; R65.21 - Severe sepsis with septic shock Status: Acute Assessment and Plan: Initial concern for possible cardiogenic shock given PE, however echocardiogram demonstrated normal right ventricular function. Sepsis is present on admission and supported by leukocytosis, hypotension, acidosis in the setting of UTI. Cannot rule out cholecystitis. After review of her antibiotic allergies, she was started on empiric ceftriaxone and metronidazole. Right femoral central line was placed per Dr. Dove, she is currently on Levophed will be titrated to achieve a MAP of at least 60. Blood cultures have been obtained and are pending. Urine culture pending as well. 09/28/19 16:16 Patient 84 year female who redides with her with history of colon cancer with colostomy bag, and bilateral breast cancer and had been bed-bound for last couple of months presented emergency department with a complaint of left leg patient is found to have extensive DVT in the left leg and weekly scan showed high probability of PE, cardiac echo did not show extensive right ventricular strain says is the most likely acute, patient is also found to have extensive metastasis 1. Extensive metastatic disease which appears to involve the lungs, left pleural space with small left pleural effusion, liver, peritoneum and numerous lymph nodes throughout the abdomen, pelvis and left inguinal region. Patient is seen by table cut off saw operator Oncology at the [facility], will consult further recommendation, patient is also found to have hypotensive and septic shock most likely secondary to infection, patient is being hydrated, and on IV antibiotics, patient clinically stable at the present time will continue to monitor seen by locomotive mechanic and appreciate (2) UTI (urinary tract infection): Qualifiers: Hematuria presence: without hematuria Urinary tract infection type: site unspecified Qualified Code(s): N39.0 - Urinary tract infection, site not specified Code(s): N39.0 - Urinary tract infection, site not specified Status: Acute Assessment and Plan: She has been started on ceftriaxone, pending urine culture. (3) Acute on chronic kidney failure: Qualifiers: Acute renal failure type: unspecified Chronic kidney disease stage: unspecified stage Qualified Code(s): N17.9 - Acute kidney failure, unspecified; N18.9 - Chronic kidney disease, unspecified Code(s): N17.9 - Acute kidney failure, unspecified; N18.9 - Chronic kidney disease, unspecified Status: Acute Assessment and Plan: She looks profoundly dehydrated on exam; cannot rule out a component of ATN from sepsis. Continue judicious IV fluid rehydration. Barakat catheter has been placed for strict I/O. Avoid nephrotoxic agents. If no improvement with the above treatment, a further workup will need to be pursued. Patient seen by Dr. Naidu further recommendation to follow (4) Severe dehydration: Code(s): E86.0 - Dehydration Status: Acute Assessment and Plan: IV fluid rehydration as above. (5) Pulmonary embolism: Qualifiers: Acute cor pulmonale presence: without acute cor pulmonale Chronicity: acute Pulmonary embolism type: unspecified Qualified Code(s): I26.99 - Other pulmonary embolism without acute cor pulmonale Code(s): I26.99 - Other pulmonary embolism without acute cor pulmonale Status: Acute Assessment and Plan: Patient is currently on heparin drip. (6) Acute deep vein thrombosis (DVT) of left lower extremity: Qualifiers: Affected thrombotic vein of extremity: unspecified vein of extremity Qualified Code(s): I82.402 - Acute embolism and thrombosis of unspecified deep veins of left lower extremity Code(s): I82.402 - Acute embolism and thrombosis of unspecified deep veins
[2019-09-28] MEDS: HEPARIN SOD/D5W 100 UNITS/ML 25,000 UNITS/250 ML BAG 7 UNITS IV CONT (17:00)
[2019-09-28] MEDS: NOREPINEPHRINE 8 MG/D5W 250 ML 8 MG/250 ML BAG 33.8 MG IV CONT (20:39)
[2019-09-29] VITALS (15 sets, daily range): BP systolic 87–122; BP diastolic 42–65; PULSE 50–81; RESP 14–22; TEMP 36.4–36.7; O2SAT 97–100
[2019-09-29] MEDS: metroNIDAZOLE 500 MG/ISO 100ML 500 MG/100 ML BAG 100 MG IVPB ×5 (01:54→22:50)
[2019-09-29] MEDS: SODIUM CHLORIDE 0.9% IV 1,000 ML 100 ML IV CONT (05:20)
[2019-09-29] MEDS: HYDROCORTISONE SODIUM SUCCINATE 100 MG/2 ML VIAL IV PUSH ×3 (05:21→21:05)
[2019-09-29 05:49] LABS: Hematocrit 25.9 % (37.0-47.0); Hemoglobin 7.5 g/dL (12.0-15.0); Mean Corpuscular Hemoglobin 27.6 pg (26-34); Mean Corpuscular Volume 95.2 fl (80-100); Mean Platelet Volume 9.8 fl (7.4-10.4); Platelet Count Result 204 k/mm3 (150-375); Red Blood Count 2.72 M/mm3 (4.2-5.4); White Blood Count 14.6 K/mm3 (4.5-10.0)
[2019-09-29 06:11] LABS: Partial Thromboplastin Time 78.1 SECONDS (22.3-36.8)
[2019-09-29 06:15] LABS: Lactic Acid 1.4 mmol/L (0.7-2.1)
[2019-09-29] MEDS: ACETAMINOPHEN 325 MG TABLET 650 MG PO ×3 (06:26→22:48)
[2019-09-29 07:07] LABS: Alanine Aminotransferase 6 U/L (4-35); Albumin Level 1.6 g/dL (3.5-5.1); Alkaline Phosphatase 160 U/L (38-126); Aspartate Amino Transferase 19 U/L (14-36); Bilirubin,Total 0.3 mg/dL (0.2-1.3); Blood Urea Nitrogen 76 mg/dL (7-17); Carbon Dioxide 19 mmol/L (22-30); Chloride 114 mmol/L (98-107); Estimated CRCL calculation 13 ml/min; Estimated Glomerular Filt Rate 15; Glucose 144 mg/dL (65-105); Magnesium 1.6 mg/dL (1.6-2.3); Phosphorus 4.1 mg/dL (2.5-4.5); Potassium 4.6 mmol/L (3.4-5.0); Sodium 136 mmol/L (137-145)
[2019-09-29 08:30] LABS: Iron 61 ug/dL (37-170)
[2019-09-29 08:40] LABS: Percent Iron Saturation 30 % (20-50)
[2019-09-29] MEDS: NOREPINEPHRINE 8 MG/D5W 250 ML 8 MG/250 ML BAG 15 MG IV CONT (09:13)
--- NOTE | 2019-09-29 09:15 | WPDONCCN ---
Assessment and Plan Assessment and plan (1) Metastasis from colon cancer: Code(s): C79.9 - Secondary malignant neoplasm of unspecified site; C18.9 - Malignant neoplasm of colon, unspecified Status: Acute Assessment and Plan: 1. CT scan findings suggest GI malignancy whether this is her recurrent colon cancer or a new primary 2. one could check a CEA but her overall picture is grim 3. Due to her multiple co-morbidities, advanced age and severe debility, she is not a candidate for any oncological treatments. She has incurable cancer and will from complications of her cancer 4. I did discuss all these issues with patient and I do strongly recommend hospice and comfort care after discharge provided she survives the septic shock 5. Patient whole-heartedly agrees with comfort care approach. 6. She is already a DNR 7. I will speak with her by phone this AM (2) 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: Code(s): C79.9 - Secondary malignant neoplasm of unspecified site; C50.919 - Malignant neoplasm of unspecified site of unspecified female breast Status: Acute Assessment and Plan: she is currently on endocrine therapy Upon review of her office records, she had a very early stage cancer and this would not present this way. Therefore, I conclude that she is in remission of this cancer (3) Septic shock: Code(s): A41.9 - Sepsis, unspecified organism; R65.21 - Severe sepsis with septic shock Status: Acute Assessment and Plan: per threading machine feeder automatic (4) Pulmonary embolism: Qualifiers: Acute cor pulmonale presence: without acute cor pulmonale Chronicity: acute Pulmonary embolism type: unspecified Qualified Code(s): I26.99 - Other pulmonary embolism without acute cor pulmonale Code(s): I26.99 - Other pulmonary embolism without acute cor pulmonale Status: Acute Assessment and Plan: on heparin due to metastatic GI cancer (5) Acute deep vein thrombosis (DVT) of left lower extremity: Qualifiers: Affected thrombotic vein of extremity: unspecified vein of extremity Qualified Code(s): I82.402 - Acute embolism and thrombosis of unspecified deep veins of left lower extremity Code(s): I82.402 - Acute embolism and thrombosis of unspecified deep veins of left lower extremity Status: Acute Assessment and Plan: on heparin due to mets and sedentary condition HPI Data of Consult Date/Time: 09/29/19 09:15 Requesting Physician: Demond Juarez MD Primary Care Provider: Maria Alejandra Henson DO Consult Narrative Narrative: Helga Richards is a 84 year old female with past h/o early stage breast cancer and colon cancer presents to ER with progressive left leg swelling and debility. She started having pain and swelling in the left leg in April. She sought out medical intervention and was diagnosed with OA and venous insuff. She was treated for those issues. Unfortunately, her leg progressively became more painful and swollen whereby she developed difficulty in moving and walking. She became more sedentary over the past couple of months. She saw a new PCP and was undergoing extensive testing without any solutions to her problems, according to the patient. All of her problems became unbearable this week, and her brought her to ER. In Er, she was noted to be in shock due to sepsis from UTI and duplex US showed extensive DVT of the left leg. In addition, she had ARF and low albumen. V/Q scan showed PE. She was anticoagulated with heparin and started on vasopressors and antibiotics. She has stabilized at present. Also, she has been having N/V/D intermittently for the past few weeks with anorexic s/s. CT of Abd/pelvis showed multiple masses in lungs, liver and peritoneum Review of Systems Review of Systems: All systems reviewed & are unremarkable except as noted in HPI and below Constitutional: Constitutional: Reports anorexia, Reports body
[2019-09-29] MEDS: SODIUM BICARBONATE 8.4% 150 MEQ in DEXTROSE 5% 1,000 ML 1,000 ML 75 MEQ IV CONT ×2 (09:16→22:47)
[2019-09-29 09:39] LABS: Vitamin B12 > 1000.0 pg/mL (239-931)
[2019-09-29] MEDS: ESCITALOPRAM OXALATE 10 MG TABLET 20 MG PO (11:35)
[2019-09-29] MEDS: ALBUMIN HUMAN 25% 12.5 GM/50ML 50 ML IVPB ×3 (11:50→22:50)
--- NOTE | 2019-09-29 12:58 | WPDINTPN ---
Progress Note: A&P Assessment and Plan (1) Shock: Code(s): R57.9 - Shock, unspecified Status: Acute Assessment and Plan: Shock, likely related to infection, PE. Patient was adequately fluid resuscitated, noninvasive and monitoring fluid responsive. - echocardiogram did not show right heart strain. - Urine cx growing PROTEUS MIRABILIS ( pansensitive), possible acute cholecystitis, - continue metronidazole and ceftriaxone - femoral CVC line in place. - Continue Levophed , OFF vasopressin - lactic acid down to 1.4 from 4.9 on admission - contiue stress dose steroids (2) Pulmonary embolism: Code(s): I26.99 - Other pulmonary embolism without acute cor pulmonale Status: Acute Assessment and Plan: patient has acute DVT and V/Q scan suggestive of PE. Patient on heparin infusion. - echocardiogram on 09/27/2019: Normal LV dimension, normal LV systolic function with EF 60-65%. Grade 1 diastolic dysfunction. RV chamber dimension and systolic function normal (3) SIMI (acute kidney injury): Code(s): N17.9 - Acute kidney failure, unspecified Status: Acute Assessment and Plan: acute kidney injury most likely related to septic shock, hypotension, pre renal, hypovolemia, ATN - adequately IV fluid resuscitated, - Maintenence fluids changed to Bicarb infusion - maintain mean arterial pressures greater than 65 mmHg for adequate renal perfusion - appreciate Nephrology valuation recommendation - continue monitor renal function, electrolytes and urine output (4) CKD (chronic kidney disease): Code(s): N18.9 - Chronic kidney disease, unspecified Status: Acute Assessment and Plan: patient's baseline creatinine is 1.8, this could be related to Hypertension. 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 Extensive metastatic disease which appears to involve the lungs, left pleural space with small left pleural effusion, liver, peritoneum and numerous lymph nodes throughout the abdomen, pelvis and left inguinal region. 2. Localized biliary ductal dilation in the lateral segment of the left hepatic lobe which may be sequela of obstruction related to metastatic disease. 3. Findings consistent with previously noted extensive deep venous thrombosis throughout the left lower limb with possible invasion of the left common femoral vein by multiple large likely metastatic left inguinal lymph nodes. 4. Cholelithiasis with dilated gallbladder suggesting mild wall thickening versus trace amount of pericholecystic fluid which could be seen with acute cholecystitis. Per prior ultrasound report sonographic Degroot sign was negative but would consider HIDA scan for further evaluation APPRECIATE oncology evaluation, Dr. Pisano recommended patient be hospice care as he has no treatment options for her widely metastasized cancer, given her advanced age, comorbidities, severe debility. (9) DVT prophylaxis: Code(s): Z29.9 - Encounter for prophylactic measures, unspecified Status: Acute Assessment and Plan: DVT prophylaxis - patient is on heparin drip Stress ulcer prophylaxis - not indicated N
--- NOTE | 2019-09-29 14:24 | PM.PNNEP ---
Progress Note: A&P Assessment and Plan (1) Acute on chronic kidney failure: Qualifiers: Acute renal failure type: unspecified Chronic kidney disease stage: unspecified stage Qualified Code(s): N17.9 - Acute kidney failure, unspecified; N18.9 - Chronic kidney disease, unspecified Code(s): N17.9 - Acute kidney failure, unspecified; N18.9 - Chronic kidney disease, unspecified Status: Acute Assessment and Plan: The patient has chronic kidney disease. Her baseline creatinine is around 1.8. Most likely this is from hypertension. Patient also has acute kidney injury. This is most likely due to dehydration, hypotension and sepsis. Urine electrolytes are pending Creatinine is slowly improving and urine output is picking up a little bit. (2) Septic shock: Code(s): A41.9 - Sepsis, unspecified organism; R65.21 - Severe sepsis with septic shock Status: Acute Assessment and Plan: The patient has low blood pressure and lactic acidosis. Lactate is back to normal. Anion gap is low now at 3 most likely due to the very low albumin. Still hypotensive. (3) Pulmonary embolism: Qualifiers: Acute cor pulmonale presence: without acute cor pulmonale Chronicity: acute Pulmonary embolism type: unspecified Qualified Code(s): I26.99 - Other pulmonary embolism without acute cor pulmonale Code(s): I26.99 - Other pulmonary embolism without acute cor pulmonale Status: Acute Assessment and Plan: The patient is on heparin drip. (4) UTI (urinary tract infection): Qualifiers: Hematuria presence: without hematuria Urinary tract infection type: site unspecified Qualified Code(s): N39.0 - Urinary tract infection, site not specified Code(s): N39.0 - Urinary tract infection, site not specified Status: Acute Assessment and Plan: The patient has pyuria and hematuria. Cultures are pending. She is on antibiotics. She is still hypotensive and is on norepinephrine. Subjective Date/time seen: 09/29/19 14:24 Interval history: Patient feels okay. She is sad because she found out about her cancer. Dr. Pisano has seen. He suggest hospice and Dr. Pearson is consulting Dr. Juarez. Review of Systems Cardiovascular: Cardiovascular: Reports no additional cardiovascular complaints Respiratory: Respiratory: Reports no additional respiratory complaints Gastrointestinal: Gastrointestinal: Reports no additional gastrointestinal complaints Genitourinary: Genitourinary: Reports no additional female genitourinary complaints Exam Narrative: Exam Narrative: Well developed well-nourished in no acute distress Lungs clear Heart regular without rub Abdomen bowel sounds positive soft nontender Extremities no edema Skin no rash Objective Data Vital Signs Vital Signs: Vital Signs - 24 hr 09/28/19 16:00 09/28/19 18:00 09/28/19 20:00 Temperature 36.6 C 36.8 C Pulse Rate 57 L 56 L 61 Respiratory Rate 17 19 18 Blood Pressure 114/54 L 110/52 L 100/55 L Pulse Oximetry 93 91 93 09/28/19 22:00 09/29/19 00:00 09/29/19 01:06 Temperature 36.5 C Pulse Rate 57 L 56 L 56 L Respiratory Rate 16 14 Blood Pressure 108/53 L 122/56 L Pulse Oximetry 94 100 09/29/19 01:07 09/29/19 04:00 09/29/19 05:58 Temperature 36.4 C Pulse Rate 57 L 51 L 50 L Respiratory Rate 18 17 Blood Pressure 116/58 L 95/56 L Pulse Oximetry 100 100 09/29/19 05:59 09/29/19 08:00 09/29/19 10:00 Temperature 36.4 C L Pulse Rate 50 L 57 L 64 Respiratory Rate 14 16 16 Blood Pressure 87/42 L 87/45 L 95/65 L Pulse Oximetry 98 97 99 09/29/19 12:00 09/29/19 14:00 Temperature 36.4 C L Pulse Rate 54 L 64 Respiratory Rate 19 17 Blood Pressure 103/45 L 110/57 L Pulse Oximetry 100 Intake/Output Intake/Output: Intake & Output 09/26/19 09/27/19 09/28/19 09/29/19 23:59 23:59 23:59 23:59 Intake Total 4200 3726 1853 Output Total 200 1150 5
--- NOTE | 2019-09-29 14:41 | PM.IMPN ---
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: Code(s): C79.9 - Secondary malignant neoplasm of unspecified site; C18.9 - Malignant neoplasm of colon, unspecified Status: Acute Assessment and Plan: Hospice consultation (2) Septic shock: Code(s): A41.9 - Sepsis, unspecified organism; R65.21 - Severe sepsis with septic shock Status: Acute Assessment and Plan: Continue antibiotics and wean off pressors (3) Pulmonary embolism: Qualifiers: Acute cor pulmonale presence: without acute cor pulmonale Chronicity: acute Pulmonary embolism type: unspecified Qualified Code(s): I26.99 - Other pulmonary embolism without acute cor pulmonale Code(s): I26.99 - Other pulmonary embolism without acute cor pulmonale Status: Acute Assessment and Plan: Continue IV heparin Will require oral anticoagulation upon discharge (4) UTI (urinary tract infection): Qualifiers: Hematuria presence: without hematuria Urinary tract infection type: site unspecified Qualified Code(s): N39.0 - Urinary tract infection, site not specified Code(s): N39.0 - Urinary tract infection, site not specified Status: Acute Assessment and Plan: Continue IV ceftriaxone until discharge (5) Acute on chronic kidney failure: Qualifiers: Acute renal failure type: unspecified Chronic kidney disease stage: unspecified stage Qualified Code(s): N17.9 - Acute kidney failure, unspecified; N18.9 - Chronic kidney disease, unspecified Code(s): N17.9 - Acute kidney failure, unspecified; N18.9 - Chronic kidney disease, unspecified Status: Acute Assessment and Plan: Improving with treatment of sepsis and with hydration Subjective Date/time seen: 09/29/19 14:41 Interval history: Patient was seen at the request of Dr. Pearson. Chart review. She has metastatic colon cancer. First diagnosed and treated in 2001. She denies advanced disease with metastases to the peritoneum, liver, and lungs. She is currently being treated for Proteus UTI with associated septic shock as well as DVT of lower extremity with pulmonary embolus. emergency management consultant has recommended comfort care only because of her advanced disease and multiple comorbidities. The patient his amenable to going home with hospice care once her medical condition has adequately stabilized. Currently she is experiencing no uncontrolled pain, dyspnea, restlessness, or anxiety. Exam Narrative: Exam Narrative: Alert and oriented to person place and time. Affect and mood appropriate. Objective Data Vital Signs Vital Signs: Vital Signs - 24 hr 09/28/19 16:00 09/28/19 18:00 09/28/19 20:00 Temperature 97.8 F 98.2 F Pulse Rate 57 L 56 L 61 Respiratory Rate 17 19 18 Blood Pressure 114/54 L 110/52 L 100/55 L Pulse Oximetry 93 91 93 09/28/19 22:00 09/29/19 00:00 09/29/19 01:06 Temperature 97.7 F Pulse Rate 57 L 56 L 56 L Respiratory Rate 16 14 Blood Pressure 108/53 L 122/56 L Pulse Oximetry 94 100 09/29/19 01:07 09/29/19 04:00 09/29/19 05:58 Temperature 97.6 F Pulse Rate 57 L 51 L 50 L Respiratory Rate 18 17 Blood Pressure 116/58 L 95/56 L Pulse Oximetry 100 100 09/29/19 05:59 09/29/19 08:00 09/29/19 10:00 Temperature 97.5 F L Pulse Rate 50 L 57 L 64 Respiratory Rate 14 16 16 Blood Pressure 87/42 L 87/45 L 95/65 L Pulse Oximetry 98 97 99 09/29/19 12:00 09/29/19 14:00 Temperature 97.5 F L Pulse Rate 54 L 64 Respiratory Rate 19 17 Blood Pressure 103/45 L 110/57 L Pulse Oximetry 100 Intake/Output Intake/Output: Intake & Output 09/26/19 09/27/19 09/28/19 09/29/19 23:59 23:59 23:59 23:59 Intake Total 4200 3726 1853 Output Total 200 1150 550 Balance 4000 2576 1303 Meds/Results Medications: Active Medications Generic Name Dose Route Start Last Admin Trade Name Freq PRN Reason Stop Dose Admin Acetaminophen 650
--- NOTE | 2019-09-29 16:38 | PCCCNOTE ---
Spoke with Syibl from [facility]. Everything set up and only need to be informed when discharging.
--- NOTE | 2019-09-29 16:41 | PM.IMPN ---
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: Code(s): C79.9 - Secondary malignant neoplasm of unspecified site; C18.9 - Malignant neoplasm of colon, unspecified Status: Acute Assessment and Plan: 09/29/19 16:41 Patient 84 year female who redides with her with history of colon cancer with colostomy bag, and bilateral breast cancer and had been bed-bound for last couple of months presented emergency department with a complaint of left leg patient is found to have extensive DVT in the left leg and weekly scan showed high probability of PE, cardiac echo did not show extensive right ventricular strain says is the most likely acute, patient is also found to have extensive metastasis 1. Extensive metastatic disease which appears to involve the lungs, left pleural space with small left pleural effusion, liver, peritoneum and numerous lymph nodes throughout the abdomen, pelvis and left inguinal region. Patient is seen by manager asset management Oncology at the [facility], will consult further recommendation, patient is also found to have hypotensive and septic shock most likely secondary to infection, patient is being hydrated, and on IV antibiotics, patient clinically stable at the present time will continue to monitor seen by household cook and Patient was seen by her oncologist after review her scan came to conclusion the prognosis is grim and there is no treatment available for her metastasis cancer suspect most likely colon cancer, her oncologist recommending hospice or comfort care, patient is agreeable for hospice will continue to treat for her septic shock is seen by household cook and being treated (2) UTI (urinary tract infection): Qualifiers: (2) 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: Code(s): C79.9 - Secondary malignant neoplasm of unspecified site; C50.919 - Malignant neoplasm of unspecified site of unspecified female breast Status: Acute Assessment and Plan: Patient was seen by oncologist and suspect most likely patient has metastasis colon cancer (3) Septic shock: Code(s): A41.9 - Sepsis, unspecified organism; R65.21 - Severe sepsis with septic shock Status: Acute Assessment and Plan: Most likely multifactorial possibly secondary to UTI growing Proteus mirabilis, patient being treated with Rocephin and Flagyl, Patient is being treated with levophed off pressor will continue to monitor (4) Pulmonary embolism: Qualifiers: Acute cor pulmonale presence: without acute cor pulmonale Chronicity: acute Pulmonary embolism type: unspecified Qualified Code(s): I26.99 - Other pulmonary embolism without acute cor pulmonale Code(s): I26.99 - Other pulmonary embolism without acute cor pulmonale Status: Acute Assessment and Plan: Most likely thrombotic states with metastatic malignancy possible source colon cancer resulting in pulmonary emboli patient is anticoagulated (5) UTI (urinary tract infection): Qualifiers: Hematuria presence: without hematuria Urinary tract infection type: site unspecified Qualified Code(s): N39.0 - Urinary tract infection, site not specified Code(s): N39.0 - Urinary tract infection, site not specified Status: Acute Assessment and Plan: Growing Proteus mirabilis sensitive to Rocephin will continue (6) Acute on chronic kidney failure: Qualifiers: Acute renal failure type: unspecified Chronic kidney disease stage: unspecified stage Qualified Code(s): N17.9 - Acute kidney failure, unspecified; N18.9 - Chronic kidney disease, unspecified Code(s): N17.9 - Acute kidney failure, unspecified; N18.9 - Chronic kidney disease, unspecified Status: Acute Assessment and Plan: Most likely acute on chronic patient is being gently hydrated seen by facility attendant further recommendation to follow Time Spent With Patient Time with patient: 15 - 25 minutes Subjective Date/time seen:
[2019-09-29] MEDS: SODIUM CHLORIDE 5% OP SOLN 15 ML BTL 1 DROP EACH EYE (17:34)
[2019-09-29] MEDS: HEPARIN SOD/D5W 100 UNITS/ML 25,000 UNITS/250 ML BAG 7 UNITS IV CONT (18:01)
[2019-09-29 18:23] LABS: IFOB Positive Control Positive; Immunochemical Fecal Occult Bl Negative (N)
[2019-09-30] VITALS (16 sets, daily range): BP systolic 80–104; BP diastolic 47–75; PULSE 53–74; RESP 12–21; TEMP 36.4–36.6; O2SAT 95–99
[2019-09-30] MEDS: ONDANSETRON INJ 4 MG/2 ML VIAL IV PUSH ×2 (01:38→09:30)
[2019-09-30] MEDS: ALBUMIN HUMAN 25% 12.5 GM/50ML 50 ML IVPB ×3 (05:32→21:02)
[2019-09-30] MEDS: metroNIDAZOLE 500 MG/ISO 100ML 500 MG/100 ML BAG 100 MG IVPB ×3 (05:32→17:30)
[2019-09-30] MEDS: HYDROCORTISONE SODIUM SUCCINATE 100 MG/2 ML VIAL IV PUSH (05:33)
[2019-09-30 05:38] LABS: Hematocrit 23.3 % (37.0-47.0); Mean Corpuscular HGB Conc 29.6 g/dl (32-36); Mean Corpuscular Hemoglobin 28.2 pg (26-34); Mean Corpuscular Volume 95.1 fl (80-100); Mean Platelet Volume 10.4 fl (7.4-10.4); Platelet Count Result 155 k/mm3 (150-375); Red Blood Count 2.45 M/mm3 (4.2-5.4); Red Cell Distribution Width 17.8 % (11.5-14.5); White Blood Count 10.3 K/mm3 (4.5-10.0)
[2019-09-30] MEDS: ACETAMINOPHEN 325 MG TABLET 650 MG PO (05:47)
[2019-09-30 05:49] LABS: Partial Thromboplastin Time 55.2 SECONDS (22.3-36.8)
[2019-09-30] MEDS: HEPARIN SODIUM 5,000 UNITS/ML VIAL 2500 UNITS IV PUSH (05:57)
[2019-09-30 06:04] LABS: Lactic Acid 3.3 mmol/L (0.7-2.1)
[2019-09-30 06:23] LABS: Alanine Aminotransferase 8 U/L (4-35); Alkaline Phosphatase 182 U/L (38-126); Aspartate Amino Transferase 17 U/L (14-36); Bilirubin,Total 0.2 mg/dL (0.2-1.3); Blood Urea Nitrogen 67 mg/dL (7-17); Calcium 6.5 mg/dL (8.4-10.2); Carbon Dioxide 21 mmol/L (22-30); Chloride 108 mmol/L (98-107); Estimated CRCL calculation 16 ml/min; Estimated Glomerular Filt Rate 18; Glucose 130 mg/dL (65-105); Magnesium 1.6 mg/dL (1.6-2.3); Phosphorus 2.8 mg/dL (2.5-4.5); Potassium 3.8 mmol/L (3.4-5.0); Sodium 137 mmol/L (137-145)
[2019-09-30 07:13] LABS: Hemoglobin 6.9 g/dL (12.0-15.0)
[2019-09-30] MEDS: SODIUM CHLORIDE 5% OP SOLN 15 ML BTL 1 DROP EACH EYE ×2 (08:57→22:04)
[2019-09-30] MEDS: ESCITALOPRAM OXALATE 10 MG TABLET 20 MG PO (08:57)
[2019-09-30] MEDS: SODIUM CHLORIDE 0.9% IV 250 ML 30 ML IV CONT (10:00)
--- NOTE | 2019-09-30 11:19 | WPDONCPN ---
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: Code(s): C79.9 - Secondary malignant neoplasm of unspecified site; C18.9 - Malignant neoplasm of colon, unspecified Status: Acute Assessment and Plan: Hospice after discharge add tramadol for pain control vs oxycodone (2) Septic shock: Code(s): A41.9 - Sepsis, unspecified organism; R65.21 - Severe sepsis with septic shock Status: Acute (3) Pulmonary embolism: Qualifiers: Acute cor pulmonale presence: without acute cor pulmonale Chronicity: acute Pulmonary embolism type: unspecified Qualified Code(s): I26.99 - Other pulmonary embolism without acute cor pulmonale Code(s): I26.99 - Other pulmonary embolism without acute cor pulmonale Status: Acute Assessment and Plan: on heparin for now (4) Acute deep vein thrombosis (DVT) of left lower extremity: Qualifiers: Affected thrombotic vein of extremity: unspecified vein of extremity Qualified Code(s): I82.402 - Acute embolism and thrombosis of unspecified deep veins of left lower extremity Code(s): I82.402 - Acute embolism and thrombosis of unspecified deep veins of left lower extremity Status: Acute Assessment and Plan: on heparin infusion slight decrease in leg edema Additional Plan transfuse 1 unit of PRBC determine if this will help with her BP and to get her off of pressors Time Spent With Patient Time with patient: 15 - 25 minutes Review of Systems Review of Systems All systems reviewed & are unremarkable except as noted in HPI and below Constitutional Constitutional: Reports anorexia, Reports body ache(s), Reports fatigue, Reports fever(s), Reports malaise, Denies night sweats, Reports poor appetite, Reports snoring, Reports weakness and Reports weight loss Eyes Eyes: Denies blurry vision ENT Denies dysphagia, Denies epistaxis, Denies mouth lesions, Denies mouth pain, Denies odynophagia, Denies disequilibrium and Denies sore throat Cardiovascular Cardiovascular: Denies chest pain, Reports leg edema and Denies dyspnea Respiratory Respiratory: Denies cough, Denies dyspnea and Reports snoring Gastrointestinal Gastrointestinal: Reports abdominal pain, Denies constipation, Denies dysphagia, Reports diarrhea, Reports nausea, Denies odynophagia and Reports vomiting Genitourinary Genitourinary: Denies hematuria and Denies dysuria Musculoskeletal Musculoskeletal: Reports abnormal gait, Denies myalgias, Reports arthralgias, Reports joint swelling and Reports muscle weakness Integumentary/Breasts Skin/Breast: Denies rash and Denies unusual bruising Neurologic Reports abnormal gait, Denies confusion, Denies disequilibrium and Reports weakness Psychiatric Psychiatric: Denies anxiety, Denies confusion and Denies depression Endocrine Endocrine: Reports fatigue Hematologic/Lymphatic Hematologic/Lymphatic: Denies easy bleeding, Denies easy bruising and Denies lymphadenopathy Exam Const: General: cooperative, well developed, Physically active, acute distress and ill appearing; No confusion Orientation/consciousness: patient oriented x3 and No confusion HENMT: Head: normal to inspection and atraumatic Ears: hearing grossly normal bilaterally General nose exam: Normal external nose present and Normal nares present Face and sinus: normal facial exam and sinuses nontender Mouth: Yes Normal oral and palatal mucosa present and Yes moist mucous membranes Teeth and gingiva: dentition normal Eyes: General: appearance normal, both eyes and all related structures Conjunctivae: conjunctivae normal Sclera: sclerae normal Pupils: Equal, round and reactive pupils present EOM: EOMs intact bilaterally Neck: Neck: full ROM, no lymphadenopathy and supple Chest: Chest palpation & inspection: no masses Breast/axilla inspection: normal inspection of the axillae Resp: Effort & Inspection: normal respiratory effort Auscultation: clear to auscult
--- NOTE | 2019-09-30 13:23 | WPDINTPN ---
Progress Note: A&P Assessment and Plan (1) Shock: Code(s): R57.9 - Shock, unspecified Status: Acute Assessment and Plan: Shock, likely related to infection, PE. Patient was adequately fluid resuscitated, noninvasive and monitoring fluid responsive. - echocardiogram did not show right heart strain. - Urine cx growing PROTEUS MIRABILIS ( pansensitive), possible acute cholecystitis, - continue metronidazole and ceftriaxone - femoral CVC line in place. - OFF Levophed , OFF vasopressin - lactic acid 3.3 this morning, likely related to anemia. - Will decrease stress dose steroids (2) Pulmonary embolism: Code(s): I26.99 - Other pulmonary embolism without acute cor pulmonale Status: Acute Assessment and Plan: patient has acute DVT and V/Q scan suggestive of PE. Patient on heparin infusion. - echocardiogram on 09/27/2019: Normal LV dimension, normal LV systolic function with EF 60-65%. Grade 1 diastolic dysfunction. RV chamber dimension and systolic function normal (3) SIMI (acute kidney injury): Code(s): N17.9 - Acute kidney failure, unspecified Status: Acute Assessment and Plan: acute kidney injury most likely related to septic shock, hypotension, pre renal, hypovolemia, ATN - adequately IV fluid resuscitated, - Maintenence fluids changed to Bicarb infusion - maintain mean arterial pressures greater than 65 mmHg for adequate renal perfusion - appreciate Nephrology valuation recommendation - continue monitor renal function, electrolytes and urine output - creatinine improving, better urine output but still low, add albumin (4) CKD (chronic kidney disease): Code(s): N18.9 - Chronic kidney disease, unspecified Status: Acute Assessment and Plan: patient's baseline creatinine is 1.8, this could be related to Hypertension. 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 Extensive metastatic disease which appears to involve the lungs, left pleural space with small left pleural effusion, liver, peritoneum and numerous lymph nodes throughout the abdomen, pelvis and left inguinal region. 2. Localized biliary ductal dilation in the lateral segment of the left hepatic lobe which may be sequela of obstruction related to metastatic disease. 3. Findings consistent with previously noted extensive deep venous thrombosis throughout the left lower limb with possible invasion of the left common femoral vein by multiple large likely metastatic left inguinal lymph nodes. 4. Cholelithiasis with dilated gallbladder suggesting mild wall thickening versus trace amount of pericholecystic fluid which could be seen with acute cholecystitis. Per prior ultrasound report sonographic Degroot sign was negative but would consider HIDA scan for further evaluation APPRECIATE oncology evaluation, Dr. Pisano recommended patient be hospice care as he has no treatment options for her widely metastasized cancer, given her advanced age, comorbidities, severe debility. (9) DVT prophylaxis: Code(s): Z29.9 - Encounter for prophylactic measures, unspecified Status: Acute Assessment and Plan: DVT p
[2019-09-30 13:37] LABS: Partial Thromboplastin Time 116.3 SECONDS (22.3-36.8)
[2019-09-30] MEDS: HYDROCORTISONE SODIUM SUCCINATE 100 MG/2 ML VIAL 50 MG IV PUSH ×2 (14:02→21:02)
[2019-09-30] MEDS: SODIUM BICARBONATE 8.4% 150 MEQ in DEXTROSE 5% 1,000 ML 1,000 ML 75 MEQ IV CONT (14:28)
--- NOTE | 2019-09-30 15:31 | PM.IMPN ---
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: Code(s): C79.9 - Secondary malignant neoplasm of unspecified site; C18.9 - Malignant neoplasm of colon, unspecified Status: Acute Assessment and Plan: 09/30/19 15:31 Patient 84 year female who redides with her with history of colon cancer with colostomy bag, and bilateral breast cancer and had been bed-bound for last couple of months presented emergency department with a complaint of left leg patient is found to have extensive DVT in the left leg and weekly scan showed high probability of PE, cardiac echo did not show extensive right ventricular strain says is the most likely acute, patient is also found to have extensive metastasis 1. Extensive metastatic disease which appears to involve the lungs, left pleural space with small left pleural effusion, liver, peritoneum and numerous lymph nodes throughout the abdomen, pelvis and left inguinal region. Patient is seen by elevator technician Oncology at the [facility], will consult further recommendation, patient is also found to have hypotensive and septic shock most likely secondary to infection, patient is being hydrated, and on IV antibiotics, patient clinically stable at the present time will continue to monitor seen by senior data quality analyst and Patient was seen by her oncologist after review her scan came to conclusion the prognosis is grim and there is no treatment available for her metastasis cancer suspect most likely colon cancer, her oncologist recommending hospice or comfort care, patient is agreeable for hospice will continue to treat for her septic shock once her BP is stable will discharge patient home, she is seen by senior data quality analyst and being treated (2) UTI (urinary tract infection): (2) 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: Code(s): C79.9 - Secondary malignant neoplasm of unspecified site; C50.919 - Malignant neoplasm of unspecified site of unspecified female breast Status: Acute Assessment and Plan: Patient was seen by oncologist and suspect most likely patient has metastasis colon cancer prognosis is poor recommending hospice (3) Septic shock: Code(s): A41.9 - Sepsis, unspecified organism; R65.21 - Severe sepsis with septic shock Status: Acute Assessment and Plan: Most likely multifactorial possibly secondary to UTI growing Proteus mirabilis, patient being treated with Rocephin and Flagyl, Patient is being treated with levophed off pressor will continue to monitor (4) Pulmonary embolism: Qualifiers: Acute cor pulmonale presence: without acute cor pulmonale Chronicity: acute Pulmonary embolism type: unspecified Qualified Code(s): I26.99 - Other pulmonary embolism without acute cor pulmonale Code(s): I26.99 - Other pulmonary embolism without acute cor pulmonale Status: Acute Assessment and Plan: Most likely thrombotic states with metastatic malignancy possible source colon cancer resulting in pulmonary emboli patient is anticoagulated (5) UTI (urinary tract infection): Qualifiers: Hematuria presence: without hematuria Urinary tract infection type: site unspecified Qualified Code(s): N39.0 - Urinary tract infection, site not specified Code(s): N39.0 - Urinary tract infection, site not specified Status: Acute Assessment and Plan: Growing Proteus mirabilis sensitive to Rocephin will continue (6) Acute on chronic kidney failure: Qualifiers: Acute renal failure type: unspecified Chronic kidney disease stage: unspecified stage Qualified Code(s): N17.9 - Acute kidney failure, unspecified; N18.9 - Chronic kidney disease, unspecified Code(s): N17.9 - Acute kidney failure, unspecified; N18.9 - Chronic kidney disease, unspecified Status: Acute Assessment and Plan: Most likely acute on chronic patient is being gently hydrated seen by car sealer further recommendation to follow Subjective Date/time
[2019-09-30 21:32] LABS: Partial Thromboplastin Time 51.4 SECONDS (22.3-36.8)
[2019-09-30] MEDS: HEPARIN SODIUM 5,000 UNITS/ML VIAL 5000 UNITS IV PUSH (22:08)
[2019-10-01] VITALS (13 sets, daily range): BP systolic 84–118; BP diastolic 44–72; PULSE 56–95; RESP 11–28; TEMP 36.4–36.9; O2SAT 92–100
[2019-10-01] MEDS: metroNIDAZOLE 500 MG/ISO 100ML 500 MG/100 ML BAG 100 MG IVPB ×4 (00:21→17:40)
[2019-10-01] MEDS: HEPARIN SOD/D5W 100 UNITS/ML 25,000 UNITS/250 ML BAG 9 UNITS IV CONT (04:15)
[2019-10-01 04:37] LABS: Basophils Percent Auto 0.1 % (0.2-1.2); Hematocrit 28.5 % (37.0-47.0); Hemoglobin 8.6 g/dL (12.0-15.0); Immature Granulocyte Absolute 0.17 K/mm3 (0.00-0.031); Immature Granulocyte Percent A 1.3 % (0-0.5); Lymphocytes Absolute Auto 0.82 K/mm3 (0.9-3.2); Lymphocytes Percent Auto 6.4 % (18.3-44.2); Mean Corpuscular HGB Conc 30.2 g/dl (32-36); Mean Corpuscular Volume 92.8 fl (80-100); Mean Platelet Volume 10.1 fl (7.4-10.4); Monocytes Absolute Auto 0.4 K/mm3 (0.1-0.6); Monocytes Percent Auto 3.3 % (2.6-8.5); Neutrophils Absolute Auto 11.4 K/mm3 (1.3-6.7); Neutrophils Percent Auto 88.9 % (45.5-73.1); Platelet Count Result 173 k/mm3 (150-375); Red Blood Count 3.07 M/mm3 (4.2-5.4); White Blood Count 12.8 K/mm3 (4.5-10.0)
[2019-10-01 04:56] LABS: Alanine Aminotransferase 8 U/L (4-35); Albumin Level 2.3 g/dL (3.5-5.1); Alkaline Phosphatase 177 U/L (38-126); Aspartate Amino Transferase 17 U/L (14-36); Bilirubin,Total 0.3 mg/dL (0.2-1.3); Blood Urea Nitrogen 64 mg/dL (7-17); Calcium 6.4 mg/dL (8.4-10.2); Carbon Dioxide 24 mmol/L (22-30); Chloride 105 mmol/L (98-107); Estimated CRCL calculation 18 ml/min; Estimated Glomerular Filt Rate 20; Glucose 122 mg/dL (65-105); Magnesium 1.6 mg/dL (1.6-2.3); Phosphorus 2.9 mg/dL (2.5-4.5); Potassium 3.5 mmol/L (3.4-5.0); Sodium 137 mmol/L (137-145)
[2019-10-01 04:57] LABS: Lactic Acid 3.1 mmol/L (0.7-2.1)
[2019-10-01 05:20] LABS: Partial Thromboplastin Time > 200.0 SECONDS (22.3-36.8)
[2019-10-01] MEDS: HYDROCORTISONE SODIUM SUCCINATE 100 MG/2 ML VIAL 50 MG IV PUSH ×3 (06:13→20:25)
[2019-10-01] MEDS: ALBUMIN HUMAN 25% 12.5 GM/50ML 50 ML IVPB ×3 (06:13→20:26)
[2019-10-01] MEDS: NOREPINEPHRINE 8 MG/D5W 250 ML 8 MG/250 ML BAG 3.8 MG IV CONT (09:19)
[2019-10-01] MEDS: ESCITALOPRAM OXALATE 10 MG TABLET 20 MG PO (09:22)
[2019-10-01] MEDS: SODIUM CHLORIDE 5% OP SOLN 15 ML BTL 1 DROP EACH EYE ×2 (09:25→20:25)
--- NOTE | 2019-10-01 10:00 | WPDINTPN ---
Progress Note: A&P Assessment and Plan (1) Shock: Code(s): R57.9 - Shock, unspecified Status: Acute Assessment and Plan: Shock, likely related to infection, PE. Patient was adequately fluid resuscitated, noninvasive and monitoring fluid responsive. - echocardiogram did not show right heart strain. - Urine cx growing PROTEUS MIRABILIS ( pansensitive), possible acute cholecystitis, - continue metronidazole and ceftriaxone - femoral CVC line in place. - Levophed had to be restarted to maintain mean arterial pressures > 65 mmHg - lactic acid trending down - stress dose steroids was decreased - will add midodrine (2) Pulmonary embolism: Code(s): I26.99 - Other pulmonary embolism without acute cor pulmonale Status: Acute Assessment and Plan: patient has acute DVT and V/Q scan suggestive of PE. Patient on heparin infusion. - echocardiogram on 09/27/2019: Normal LV dimension, normal LV systolic function with EF 60-65%. Grade 1 diastolic dysfunction. RV chamber dimension and systolic function normal (3) SIMI (acute kidney injury): Code(s): N17.9 - Acute kidney failure, unspecified Status: Acute Assessment and Plan: acute kidney injury most likely related to septic shock, hypotension, pre renal, hypovolemia, ATN - adequately IV fluid resuscitated, - Maintenence fluids changed to Bicarb infusion - maintain mean arterial pressures greater than 65 mmHg for adequate renal perfusion - appreciate Nephrology valuation recommendation - continue monitor renal function, electrolytes and urine output - creatinine improving, better urine output but still low, continue albumin (4) CKD (chronic kidney disease): Code(s): N18.9 - Chronic kidney disease, unspecified Status: Acute Assessment and Plan: patient's baseline creatinine is 1.8, this could be related to Hypertension. 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 Extensive metastatic disease which appears to involve the lungs, left pleural space with small left pleural effusion, liver, peritoneum and numerous lymph nodes throughout the abdomen, pelvis and left inguinal region. 2. Localized biliary ductal dilation in the lateral segment of the left hepatic lobe which may be sequela of obstruction related to metastatic disease. 3. Findings consistent with previously noted extensive deep venous thrombosis throughout the left lower limb with possible invasion of the left common femoral vein by multiple large likely metastatic left inguinal lymph nodes. 4. Cholelithiasis with dilated gallbladder suggesting mild wall thickening versus trace amount of pericholecystic fluid which could be seen with acute cholecystitis. Per prior ultrasound report sonographic Degroot sign was negative but would consider HIDA scan for further evaluation APPRECIATE oncology evaluation, Dr. Pisano recommended patient be hospice care as he has no treatment options for her widely metastasized cancer, given her advanced age, comorbidities, severe debility. (9) DVT prophylaxis: Code(s): Z29.9 - Encounter for prophylactic measures, unspecified Stat
--- NOTE | 2019-10-01 10:56 | PCDIET ---
Nutrition Follow-Up Complete: Nutrition Diagnosis: Inadequate oral intake related to multiple medical issues as evidenced by NPO x 3 days. Nutrition Goal: Patient to meet estimated nutritional needs. Goal not met. Patient consuming less than 25% of most meals on heart healthy, low fat diet. Recommend low fat diet to allow more choices. Would also add Ensure Clear (240kcal, 8g protein, 0g fat) TID with meals. Last recorded weight is 101.2 kg which is increased. +I/O noted. Bowel Motility: +Liquid stool via colostomy Labs Reviewed: Glu (122), BUN (64), Cr (2.3), Ca (6.4), Alb (2.3) Meds Noted: Albumin, Rocephin, Solu Cortef, Flagyl, Levophed, Sodium Bicarbonate, s/p Calcium Gluconate 09/30/19 Additional Notes: Plan to discharge home with hospice once shock resolved. No open sores documented. Will continue to monitor with same goal. Nutrition Monitoring and Evaluation: Follow up in 3 days. Follow daily in ICU rounds.
[2019-10-01] MEDS: MIDODRINE HCL 10 MG TABLET PO ×2 (12:43→17:41)
[2019-10-01 13:03] LABS: Partial Thromboplastin Time 56.3 SECONDS (22.3-36.8)
[2019-10-01] MEDS: SODIUM BICARBONATE 8.4% 150 MEQ in DEXTROSE 5% 1,000 ML 1,000 ML 50 MEQ IV CONT (14:13)
--- NOTE | 2019-10-01 15:01 | PM.IMPN ---
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: Code(s): C79.9 - Secondary malignant neoplasm of unspecified site; C18.9 - Malignant neoplasm of colon, unspecified Status: Acute Assessment and Plan: 10/01/19 15:01 Patient 84 year female who redides with her with history of colon cancer with colostomy bag, and bilateral breast cancer and had been bed-bound for last couple of months presented emergency department with a complaint of left leg patient is found to have extensive DVT in the left leg and weekly scan showed high probability of PE, cardiac echo did not show extensive right ventricular strain says is the most likely acute, patient is also found to have extensive metastasis 1. Extensive metastatic disease which appears to involve the lungs, left pleural space with small left pleural effusion, liver, peritoneum and numerous lymph nodes throughout the abdomen, pelvis and left inguinal region. Patient is seen by head baggage porter Oncology at the [facility], will consult further recommendation, patient is also found to have hypotensive and septic shock most likely secondary to infection, patient is being hydrated, and on IV antibiotics, patient clinically stable at the present time will continue to monitor seen by copy clerk and Patient was seen by her oncologist after review her scan came to conclusion the prognosis is grim and there is no treatment available for her metastasis cancer suspect most likely colon cancer, her oncologist recommending hospice or comfort care, patient is agreeable for hospice will continue to treat for her septic shock patient is still requiring levophed 2mcg, once her BP is stable will discharge patient home, where she will be admitted under hospice care, she is seen by copy clerk and being treated (2) 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: Code(s): C79.9 - Secondary malignant neoplasm of unspecified site; C50.919 - Malignant neoplasm of unspecified site of unspecified female breast Status: Acute Assessment and Plan: Patient was seen by oncologist and suspect most likely patient has metastasis colon cancer prognosis is poor recommending hospice (3) Septic shock: Code(s): A41.9 - Sepsis, unspecified organism; R65.21 - Severe sepsis with septic shock Status: Acute Assessment and Plan: Most likely multifactorial possibly secondary to UTI growing Proteus mirabilis, patient being treated with Rocephin and Flagyl, Patient is being treated with levophed off pressor will continue to monitor (4) Pulmonary embolism: Qualifiers: Acute cor pulmonale presence: without acute cor pulmonale Chronicity: acute Pulmonary embolism type: unspecified Qualified Code(s): I26.99 - Other pulmonary embolism without acute cor pulmonale Code(s): I26.99 - Other pulmonary embolism without acute cor pulmonale Status: Acute Assessment and Plan: Most likely thrombotic states with metastatic malignancy possible source colon cancer resulting in pulmonary emboli patient is anticoagulated (5) UTI (urinary tract infection): Qualifiers: Hematuria presence: without hematuria Urinary tract infection type: site unspecified Qualified Code(s): N39.0 - Urinary tract infection, site not specified Code(s): N39.0 - Urinary tract infection, site not specified Status: Acute Assessment and Plan: Growing Proteus mirabilis sensitive to Rocephin will continue (6) Acute on chronic kidney failure: Qualifiers: Acute renal failure type: unspecified Chronic kidney disease stage: unspecified stage Qualified Code(s): N17.9 - Acute kidney failure, unspecified; N18.9 - Chronic kidney disease, unspecified Code(s): N17.9 - Acute kidney failure, unspecified; N18.9 - Chronic kidney disease, unspecified Status: Acute Assessment and Plan: Most likely acute on chronic patient is being gently hydrated seen by fast food crew member
[2019-10-01] MEDS: ONDANSETRON INJ 4 MG/2 ML VIAL IV PUSH ×2 (15:41→20:29)
[2019-10-01] MEDS: HEPARIN SODIUM 5,000 UNITS/ML VIAL 5000 UNITS IV PUSH (21:08)
[2019-10-02] VITALS (7 sets, daily range): BP systolic 92–119; BP diastolic 52–64; PULSE 63–89; RESP 12–20; TEMP 36.3–36.9; O2SAT 92–97
[2019-10-02] MEDS: metroNIDAZOLE 500 MG/ISO 100ML 500 MG/100 ML BAG 100 MG IVPB ×2 (00:04→06:24)
[2019-10-02 03:44] LABS: Hemoglobin 8.9 g/dL (12.0-15.0); Mean Corpuscular HGB Conc 30.7 g/dl (32-36); Mean Corpuscular Hemoglobin 28.4 pg (26-34); Mean Corpuscular Volume 92.7 fl (80-100); Mean Platelet Volume 10.6 fl (7.4-10.4); Platelet Count Result 162 k/mm3 (150-375); Red Blood Count 3.13 M/mm3 (4.2-5.4); Red Cell Distribution Width 18.3 % (11.5-14.5); White Blood Count 13.6 K/mm3 (4.5-10.0)
[2019-10-02 03:46] LABS: Alanine Aminotransferase 7 U/L (4-35); Albumin Level 2.5 g/dL (3.5-5.1); Alkaline Phosphatase 144 U/L (38-126); Aspartate Amino Transferase 16 U/L (14-36); Bilirubin,Total 0.5 mg/dL (0.2-1.3); Blood Urea Nitrogen 59 mg/dL (7-17); Calcium 6.6 mg/dL (8.4-10.2); Carbon Dioxide 29 mmol/L (22-30); Chloride 103 mmol/L (98-107); Estimated CRCL calculation 18 ml/min; Estimated Glomerular Filt Rate 20; Glucose 117 mg/dL (65-105); Lactic Acid 2.7 mmol/L (0.7-2.1); Magnesium 1.5 mg/dL (1.6-2.3); Phosphorus 2.6 mg/dL (2.5-4.5); Potassium 3.3 mmol/L (3.4-5.0); Sodium 138 mmol/L (137-145)
[2019-10-02 04:05] LABS: Partial Thromboplastin Time > 200.0 SECONDS (22.3-36.8)
[2019-10-02] MEDS: ALBUMIN HUMAN 25% 12.5 GM/50ML 50 ML IVPB (06:24)
[2019-10-02] MEDS: HYDROCORTISONE SODIUM SUCCINATE 100 MG/2 ML VIAL 50 MG IV PUSH (06:25)
--- NOTE | 2019-10-02 08:10 | WPDINTPN ---
Progress Note: A&P Assessment and Plan (1) Shock: Code(s): R57.9 - Shock, unspecified Status: Acute Assessment and Plan: Shock, likely related to infection, PE. Patient was adequately fluid resuscitated, noninvasive and monitoring fluid responsive. - echocardiogram did not show right heart strain. - Urine cx growing PROTEUS MIRABILIS ( pansensitive), - continue metronidazole and ceftriaxone - femoral CVC line in place. - OFF Levophed - lactic acid trending down - stress dose steroids was decreased - continue midodrine (2) Pulmonary embolism: Code(s): I26.99 - Other pulmonary embolism without acute cor pulmonale Status: Acute Assessment and Plan: patient has acute DVT and V/Q scan suggestive of PE. Patient on heparin infusion. - echocardiogram on 09/27/2019: Normal LV dimension, normal LV systolic function with EF 60-65%. Grade 1 diastolic dysfunction. RV chamber dimension and systolic function normal (3) SIMI (acute kidney injury): Code(s): N17.9 - Acute kidney failure, unspecified Status: Acute Assessment and Plan: acute kidney injury most likely related to septic shock, hypotension, pre renal, hypovolemia, ATN - adequately IV fluid resuscitated, - stop maintenance IV fluids - maintain mean arterial pressures greater than 60 mmHg for adequate renal perfusion - appreciate Nephrology valuation recommendation - continue monitor renal function, electrolytes and urine output - creatinine improving, better urine output but still low, continue albumin (4) CKD (chronic kidney disease): Code(s): N18.9 - Chronic kidney disease, unspecified Status: Acute Assessment and Plan: patient's baseline creatinine is 1.8, this could be related to Hypertension. 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 Extensive metastatic disease which appears to involve the lungs, left pleural space with small left pleural effusion, liver, peritoneum and numerous lymph nodes throughout the abdomen, pelvis and left inguinal region. 2. Localized biliary ductal dilation in the lateral segment of the left hepatic lobe which may be sequela of obstruction related to metastatic disease. 3. Findings consistent with previously noted extensive deep venous thrombosis throughout the left lower limb with possible invasion of the left common femoral vein by multiple large likely metastatic left inguinal lymph nodes. 4. Cholelithiasis with dilated gallbladder suggesting mild wall thickening versus trace amount of pericholecystic fluid which could be seen with acute cholecystitis. Per prior ultrasound report sonographic Degroot sign was negative but would consider HIDA scan for further evaluation APPRECIATE oncology evaluation, Dr. Pisano recommended patient be hospice care as he has no treatment options for her widely metastasized cancer, given her advanced age, comorbidities, severe debility. (9) DVT prophylaxis: Code(s): Z29.9 - Encounter for prophylactic measures, unspecified Status: Acute Assessment and Plan: DVT prophylaxis - patient is on heparin drip Stress ulcer prophylaxis - not indicated
[2019-10-02] MEDS: HEPARIN SOD/D5W 100 UNITS/ML 25,000 UNITS/250 ML BAG 9 UNITS IV CONT (10:55)
--- NOTE | 2019-10-02 10:59 | PCDIET ---
ICU Rounding Note: Patient eating poorly on heart healthy, low fat diet, with Ensure Clear TID. Plan for home hospice once more stable. Last recorded weight is 98.6kg which is down from last review, but increased from admission. Bowel Motility: +Colostomy output. Labs Reviewed: BUN (5.9), Cr (2.3), K (3.3), Ca (6.6), Mg (1.5), Alb (2.5) Meds Noted: Albumin, Rocephin, Solu Cortef, Midodrine, Flagyl, Levophed, KCl Additional Notes: s/p calcium gluconate and magnesium sulfate. Also received sodium bicarbonate. No documented skin breakdown. Given plan for hospice, would continue diet as tolerated at this time and encourage intake. If aggressive nutritional therapy is desired, consult RD for nutrition support recommendations. Following daily in ICU rounds. Assessing/reassessing every 3 days.
[2019-10-02] MEDS: SODIUM CHLORIDE 5% OP SOLN 15 ML BTL 1 DROP EACH EYE (11:14)
[2019-10-02] MEDS: MIDODRINE HCL 10 MG TABLET PO ×2 (11:15→13:20)
[2019-10-02] MEDS: ESCITALOPRAM OXALATE 10 MG TABLET 20 MG PO (11:15)
[2019-10-02] MEDS: CALCIUM GLUC 2,000 MG/NS 100ML 2,000 MG/100 ML BAG 100 MG IVPB (11:16)
[2019-10-02] MEDS: MAGNESIUM SULF 2 GM/WATER 50ML 2 GM/50 ML BAG IVPB (11:16)
--- NOTE | 2019-10-02 12:33 | PM.DS ---
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: Code(s): C79.9 - Secondary malignant neoplasm of unspecified site; C18.9 - Malignant neoplasm of colon, unspecified Status: Acute Assessment and Plan: 10/01/19 15:01 Patient 84 year female who redides with her with history of colon cancer with colostomy bag, and bilateral breast cancer and had been bed-bound for last couple of months presented emergency department with a complaint of left leg patient is found to have extensive DVT in the left leg and weekly scan showed high probability of PE, cardiac echo did not show extensive right ventricular strain says is the most likely acute, patient is also found to have extensive metastasis 1. Extensive metastatic disease which appears to involve the lungs, left pleural space with small left pleural effusion, liver, peritoneum and numerous lymph nodes throughout the abdomen, pelvis and left inguinal region. Patient is seen by pharmacologist Oncology at the [facility], will consult further recommendation, patient is also found to have hypotensive and septic shock most likely secondary to infection, patient is being hydrated, and on IV antibiotics, patient clinically stable at the present time will continue to monitor seen by family life counselor and Patient was seen by her oncologist after review her scan came to conclusion the prognosis is grim and there is no treatment available for her metastasis cancer suspect most likely colon cancer, her oncologist recommending hospice or comfort care, patient is agreeable for hospice will continue to treat for her septic shock patient is still requiring levophed 2mcg, once her BP is stable will discharge patient home, where she will be admitted under hospice care, she is seen by family life counselor and being treated (2) 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: Code(s): C79.9 - Secondary malignant neoplasm of unspecified site; C50.919 - Malignant neoplasm of unspecified site of unspecified female breast Status: Acute Assessment and Plan: Patient was seen by oncologist and suspect most likely patient has metastasis colon cancer prognosis is poor recommending hospice (3) Septic shock: Code(s): A41.9 - Sepsis, unspecified organism; R65.21 - Severe sepsis with septic shock Status: Acute Assessment and Plan: Most likely multifactorial possibly secondary to UTI growing Proteus mirabilis, patient being treated with Rocephin and Flagyl, Patient is being treated with levophed off pressor will continue to monitor (4) Pulmonary embolism: Qualifiers: Acute cor pulmonale presence: without acute cor pulmonale Chronicity: acute Pulmonary embolism type: unspecified Qualified Code(s): I26.99 - Other pulmonary embolism without acute cor pulmonale Code(s): I26.99 - Other pulmonary embolism without acute cor pulmonale Status: Acute Assessment and Plan: Most likely thrombotic states with metastatic malignancy possible source colon cancer resulting in pulmonary emboli patient is anticoagulated (5) UTI (urinary tract infection): Qualifiers: Hematuria presence: without hematuria Urinary tract infection type: site unspecified Qualified Code(s): N39.0 - Urinary tract infection, site not specified Code(s): N39.0 - Urinary tract infection, site not specified Status: Acute Assessment and Plan: Growing Proteus mirabilis sensitive to Rocephin will continue (6) Acute on chronic kidney failure: Qualifiers: Acute renal failure type: unspecified Chronic kidney disease stage: unspecified stage Qualified Code(s): N17.9 - Acute kidney failure, unspecified; N18.9 - Chronic kidney disease, unspecified Code(s): N17.9 - Acute kidney failure, unspecified; N18.9 - Chronic kidney disease, unspecified Status: Acute Assessment and Plan: Most likely acute on chr
[2019-10-02] MEDS: APIXABAN 5 MG TABLET PO (14:51)
[2019-10-02] MEDS: NEOMYCIN/POLYMYXIN/BACITRACIN OINTMENT PACKET 1 PACKET (15:02)
== END 2019-10-02 15:06 | disposition hospice, home (50) | DRG 871 ==
LOC: ANHED 15:49 → ANHICU 20:54
PROVIDERS: Internal Medicine; Admitting Provider Internal Medicine; Emergency Provider Emergency Medicine; PCP Family Medicine; Visit Provider Family Medicine
DX: A41.9 Sepsis, unspecified organism (principal); R65.21 Severe sepsis with septic shock; I26.99 Other pulmonary embolism without acute cor pulmonale; N39.0 Urinary tract infection, site not specified; I82.492 Acute embolism and thrombosis of other specified deep vein of left lower extremity; N17.9 Acute kidney failure, unspecified; C18.9 Malignant neoplasm of colon, unspecified; C79.9 Secondary malignant neoplasm of unspecified site; B96.4 Proteus (mirabilis) (morganii) as the cause of diseases classified elsewhere; R31.9 Hematuria, unspecified; C50.919 Malignant neoplasm of unspecified site of unspecified female breast; E86.0 Dehydration; I12.9 Hypertensive chronic kidney disease with stage 1 through stage 4 chronic kidney disease, or unspecified chronic kidney disease; N18.3 Chronic kidney disease, stage 3 (moderate); F41.8 Other specified anxiety disorders; M47.896 Other spondylosis, lumbar region; E78.5 Hyperlipidemia, unspecified; K80.20 Calculus of gallbladder without cholecystitis without obstruction; E87.5 Hyperkalemia; Z66 Do not resuscitate; Z93.3 Colostomy status; Z98.42 Cataract extraction status, left eye; Z98.41 Cataract extraction status, right eye; Z86.718 Personal history of other venous thrombosis and embolism
CPT/HCPCS: 36415; 36430; 36600; 71045; 71046; 74176; 76705; 78580; 80048; 80053; 81001; 82274; 82375; 82607; 82746; 82805; 82948; 83050; 83540; 83550; 83605; 83690; 83735; 83880; 84100; 84484; 85025; 85027; 85610; 85730; 86850; 86900; 86901; 86923; 87040; 87077; 87086; 87088; 87186; 93005; 93971; 96361; 96365; 96366; 96367; 96368; 96375; 96376; 99291; A9270; A9540; C1751; C8929; J0131; J0610; J0696; J1644; J1720; J1815; J2370; J2405; J3010; J3475; J3480; J7030; J7050; J7070; P9016; P9047; Q9957